=== PATIENT | female | born 1950 | race Caucasian/White ===

== ENCOUNTER 2020-02-03 14:09 | Emergency (ER) | payer MEDICARE, OTHER, SELFPAY ==
[2020-02-03] VITALS (21 sets, daily range): BP systolic 88–151; BP diastolic 66–94; PULSE 65–95; RESP 15–24; TEMP 36.7; O2SAT 92–99
--- NOTE | ~2020-02-03 | XR_ITS ---
EXAMINATION: XR chest 1V portable DATE: 02/03/2020 15:41 INDICATION: Shortness of breath. COVID-19 exposure. TECHNIQUE: A single frontal view of the chest was obtained. COMPARISON: Chest 2 views 03/20/2019 FINDINGS: Sensitivity is decreased by obesity. There are airspace opacities at right lung base. No pl eural effusion or pneumothorax. The heart size is normal. IMPRESSION: 1. Airspace opacities at right lung base, consistent with atelectasis versus pneumonia. Reviewed, dictated and finalized at location A. IMPRESSION: 1. Airspace opacities at right lung base, consistent with atelectasis versus pn eumonia.
--- NOTE | 2020-02-03 14:20 | ECG_ITS ---
Measurements Intervals [place] Rate: 74 P: -32 MS: 122 QRS: -44 QRSD: 104 T: 19 QT: 391 QTc: 435 Interpretive Statements SINUS OR ECTOPIC ATRIAL RHYTHM POOR R WAVE PROGRESSION, ANTERIOR LEADS HIGH LATERAL INFARCT, AGE INDETERMINATE ABNORMAL ECG Electronically Signed On 02-03-2020 15:20:11 CDT by Pablo Gold D.O.
[2020-02-03 14:53] LABS: Basophils Absolute Auto 0.1 K/mm3 (0.0-0.1); Basophils Percent Auto 0.7 % (0.2-1.2); Eosinophils Absolute Auto 0.6 K/mm3 (0-0.3); Eosinophils Percent Auto 4.9 % (0-4.4); Hematocrit 42.7 % (37.0-47.0); Immature Granulocyte Absolute 0.09 K/mm3 (0.00-0.031); Immature Granulocyte Percent A 0.7 % (0-0.5); Lymphocytes Percent Auto 26.6 % (18.3-44.2); Mean Corpuscular HGB Conc 32.8 g/dl (32-36); Mean Corpuscular Volume 97.7 fl (80-100); Mean Platelet Volume 10.3 fl (7.4-10.4); Monocytes Absolute Auto 0.7 K/mm3 (0.1-0.6); Monocytes Percent Auto 5.6 % (2.6-8.5); Neutrophils Absolute Auto 7.9 K/mm3 (1.3-6.7); Neutrophils Percent Auto 61.5 % (45.5-73.1); Platelet Count Result 282 k/mm3 (150-375); Red Blood Count 4.37 M/mm3 (4.2-5.4); Red Cell Distribution Width 13.9 % (11.5-14.5); White Blood Count 12.8 K/mm3 (4.5-10.0)
[2020-02-03 15:07] LABS: Anion Gap 7 mmol/L (8-16); Blood Urea Nitrogen 18 mg/dL (7-17); Calcium 9.1 mg/dL (8.4-10.2); Carbon Dioxide 25 mmol/L (22-30); Chloride 105 mmol/L (98-107); Estimated Glomerular Filt Rate > 60; Glucose 115 mg/dL (65-105); Potassium 3.2 mmol/L (3.4-5.0); Sodium 137 mmol/L (137-145)
--- NOTE | 2020-02-03 15:32 | ED.SOB ---
HPI - SOB/Dyspnea General Chief Complaint: Shortness of Breath/Dyspnea Stated Complaint: sob, covid exposure Time Seen by Provider: 02/03/20 15:15 Source: patient Mode of arrival: ambulatory Limitations: no limitations History of Present Illness HPI Narrative: This is a 69-year-old female that presents to the emergency department for cold symptoms x1 week. Reports cough, congestion, and shortness of breath. Reports history of asthma and increased wheezing. Reports she has finished a Z-Frankie and steroid taper with little relief. Reports she found out today that she had a COVID exposure prior to symptoms starting. Reports chest pain with coughing. Denies fever. Related Data Home Medications Medication Instructions Recorded Confirmed albuterol sulfate 02/03/20 albuterol sulfate INHALATION 02/03/20 alprazolam 02/03/20 amlodipine [Norvasc] 02/03/20 budesonide-formoterol [Symbicort] INHALATION 02/03/20 fluticasone propionate INTRANASAL 02/03/20 levothyroxine 02/03/20 lovastatin mg 02/03/20 mirtazapine mg 02/03/20 montelukast mg 02/03/20 umeclidinium [Incruse Ellipta] INHALATION 02/03/20 Allergies Allergy/AdvReac Type Severity Reaction Status Date / Time No Known Allergies Allergy Unknown Verified 02/03/20 15:11 Review of Systems Review of Systems: Narrative: CONSTITUTIONAL: Denies fever ENT: Reports rhinorrhea, congestion. Denies sore throat CARDIOVASCULAR: Reports chest pain. Denies edema. RESPIRATORY: Reports cough and dyspnea. All systems reviewed & are unremarkable except as noted in HPI and below [facility] Past Medical History Medical History (Updated 02/03/20 @ 19:56 by Michela Brown PA-C) History of asthma History of hypertension History of hypothyroidism Surgical History Surgical History (Updated 02/03/20 @ 15:35 by Michela Brown PA-C) History of cholecystectomy Social History Social History (Updated 02/03/20 @ 15:36 by Michela Brown PA-C) Smoking status: Never smoker Gender identity (if verbalized by the patient): Female Exam Narrative: Exam Narrative: GENERAL: Well-appearing, obese, and in no acute distress. HEAD: Normocephalic, atraumatic. EYES: EOMI. ENT: Nares clear, no rhinorrhea or epistaxis. Mucous membranes moist. Oropharynx without tonsillar hypertrophy exudate or other lesions. Bilateral TMs pearly amaya non-bulging NECK: Supple. No adenopathy or masses. CHEST: Clear to auscultation. No respiratory distress. No wheezes rales or rhonchi HEART: Regular rate and rhythm. No murmur heard. Normal peripheral pulses. EXTREMITIES: Normal range of motion. No edema. SKIN: Warm, dry, no rash. NEURO: No focal deficits. Alert and oriented x3. PSYCH: Normal mood and affect Course Vital Signs Vital signs: Vital Signs Temperature 98.1 F 02/03/20 14:16 Pulse Rate 95 02/03/20 14:16 Respiratory Rate 18 02/03/20 14:16 Blood Pressure 115/69 02/03/20 14:16 Pulse Oximetry 97 02/03/20 14:16 Temperature 98.1 F 02/03/20 14:16 Pulse Rate 66 02/03/20 19:27 Respiratory Rate 19 02/03/20 19:27 Blood Pressure 138/71 02/03/20 19:27 Pulse Oximetry 92 02/03/20 19:27 MDM - SOB/Dyspnea MDM Narrative Medical decision making narrative: Patient presents to the emergency department for cold symptoms x1 week. Has finished a z pac and steroid with little relief. Patient is afebrile and nontoxic-appearing. Oxygen saturation has remained normal on room air. CBC with mild leukocytosis to 12.8. Metabolic panel with mild hypokalemia, patient given a dose of potassium in the ED. Lactic acid, LDH are normal. CRP is not elevated. BNP is normal. EKG with nonspecific ST changes, baseline troponin is negative. Chest x-ray with atelectasis versus pneumonia. Patient able to give ambulate and maintain her oxygen saturation. SARS-CoV-2 was sent. Was instructed to remain self isolated and monitor oxygen saturation. Patient is stable and felt appropriate for t
[2020-02-03] MEDS: POTASSIUM CHLORIDE 20 MEQ TABLET PO (15:39)
[2020-02-03 15:50] LABS: Partial Thromboplastin Time 31.8 SECONDS (22.3-36.8); Prothrombin Time 12.7 Seconds (11.1-14.7)
[2020-02-03 16:01] LABS: D Dimer 0.27 ug/mL (<0.48)
[2020-02-03 18:03] LABS: Prothrombin Time 13.1 Seconds (11.1-14.7)
[2020-02-03 18:04] LABS: Partial Thromboplastin Time 31.7 SECONDS (22.3-36.8)
[2020-02-03 18:05] LABS: Lactic Acid Reflex 0.9 mmol/L (0.7-2.1)
[2020-02-03 18:14] LABS: NT Pro B Type Natriuretic Pept 75 PG/ML (5-100)
[2020-02-03 18:17] LABS: Troponin I < 0.012 ng/mL (0.000-0.034)
[2020-02-03 18:31] LABS: Alanine Aminotransferase 23 U/L (4-35); Albumin Level 4.1 g/dL (3.5-5.1); Alkaline Phosphatase 81 U/L (38-126); Aspartate Amino Transferase 19 U/L (14-36); CRP < 0.5 mg/dL (<1.0); Lactate Dehydrogenase 340 U/L (313-618)
[2020-02-03 18:48] LABS: Bilirubin,Total 0.8 mg/dL (0.2-1.3)
--- NOTE | 2020-02-03 19:28 | PC.NURSE ---
Assumed care of pt at this time. Report from TOMY Ennis
[2020-02-04 01:52] LABS: SARS-CoV-2 RNA PCR Negative
== END 2020-02-03 20:20 | disposition home or self-care (01) ==
PROVIDERS: Emergency Medicine; Physician Assistant; Emergency Provider Emergency Medicine
DX: J18.9 Pneumonia, unspecified organism (principal); E87.6 Hypokalemia; Z20.828 Contact with and (suspected) exposure to other viral communicable diseases; I10 Essential (primary) hypertension; E78.5 Hyperlipidemia, unspecified; J45.909 Unspecified asthma, uncomplicated; R94.31 Abnormal electrocardiogram [ECG] [EKG]
CPT/HCPCS: 36415; 71045; 80048; 80076; 83605; 83615; 83880; 84484; 85025; 85380; 85610; 85730; 86140; 87635; 93005; 99284; A9270; C9803; U0003

== ENCOUNTER → 2021-12-30 09:20 | Outpatient (CLI) | payer MEDICARE, SELFPAY ==
--- NOTE | ~2021-12-30 | US_ITS ---
EXAMINATION: US abdomen complete DATE: 12/30/2021 09:51 INDICATION: Abdominal pain. Status post cholecystectomy TECHNIQUE: Multiple grayscale and Doppler ultrasound images of the abdomen were obtained. COMPARISON: Ultrasound kidney 10/05/2018. FINDINGS: Exam limited by body habitus. Visualized portions of the pancreas are normal. The liver is normal wit h normal echogenicity and echotexture. No surface nodularity. Normal hepatopetal flow in the main por shannan vein. Gallbladder absent. The normal common bile duct measures 9 mm. The visualized portions of t he aorta and inferior vena cava are normal. Distal aorta not well seen. The right kidney measures 11.4 x 5.0 x 5.6. The left kidney measures 10.7 x 4.8 x 4.5. The kidneys de monstrate normal parenchymal echogenicity. There is no hydronephrosis. Lobular renal contour on the l eft may reflect renal scarring. The spleen is normal in appearance and measures 8 cm. IMPRESSION: 1. Possible left renal scarring. 2. Otherwise normal abdominal ultrasound findings. Reviewed, dictated and finalized at location K.
== END ==
PROVIDERS: PCP Nurse Practitioner Family; Visit Provider Nurse Practitioner Family
DX: R10.9 Unspecified abdominal pain (principal)
CPT/HCPCS: 76700

== ENCOUNTER 2022-09-05 14:34 | Outpatient (CLI) | payer MEDICARE, SELFPAY ==
--- NOTE | ~2022-09-05 | XR_ITS ---
XR abdomen obstructive series DATE: 09/05/2022 15:26 INDICATION: Nausea, vomiting, diarrhea, weakness TECHNIQUE: Supine and upright AP views COMPARISON: None FINDINGS: There is some gas containing nondilated small bowel segments overlying the left and right m id abdomen. No large or small bowel dilatation is noted to suggest obstruction. Consider enteritis or mild adynamic ileus. No intraperitoneal free air is detected. No portal venous gas or pneumobilia is detected. No visceromegaly or significant abnormal calcification is noted. IMPRESSION: Nonspecific abdomen Reviewed, dictated and finalized at Location A. Reviewed, dictated and finalized at location A. IMPRESSION: Nonspecific abdomen
[2022-09-05 15:08] LABS: Basophils Absolute Auto 0.1 K/mm3 (0.0-0.1); Basophils Percent Auto 0.7 % (0.2-1.2); Eosinophils Absolute Auto 0.7 K/mm3 (0-0.3); Eosinophils Percent Auto 5.2 % (0-4.4); Hematocrit 34.4 % (37.0-47.0); Hemoglobin 10.2 g/dL (12.0-15.0); Immature Granulocyte Absolute 0.05 K/mm3 (0.00-0.031); Immature Granulocyte Percent A 0.4 % (0-0.5); Lymphocytes Absolute Auto 2.38 K/mm3 (0.9-3.2); Lymphocytes Percent Auto 18.9 % (18.3-44.2); Mean Corpuscular HGB Conc 29.7 g/dl (32-36); Mean Corpuscular Hemoglobin 27.4 pg (26-34); Mean Corpuscular Volume 92.5 fl (80-100); Mean Platelet Volume 9.9 fl (7.4-10.4); Monocytes Absolute Auto 0.9 K/mm3 (0.1-0.6); Neutrophils Absolute Auto 8.5 K/mm3 (1.3-6.7); Neutrophils Percent Auto 67.8 % (45.5-73.1); Platelet Count Result 587 k/mm3 (150-375); Red Blood Count 3.72 M/mm3 (4.2-5.4); Red Cell Distribution Width 15.3 % (11.5-14.5); White Blood Count 12.6 K/mm3 (4.5-10.0)
[2022-09-05 15:22] LABS: Appearance Urine Turbid (Clear); Bacteria Urine 2+ /hpf; Bilirubin Urine 2+ (Negative); Blood Urine Negative (Negative); Color Urine Dark Yellow (Yellow); Glucose Urine UA Trace mg/dL (Negative); Hyaline Casts Urine Present /lpf; Ketones Urine 1+ mg/dL (Negative); Leukocyte Esterase Ur 2+ LEU/UL (NEGATIVE); Nitrate Urine Negative (Negative); Non Pathogenic Casts >20; Protein Urine 3+ mg/dL (Negative); Specific Grav Ur 1.028 (1.001-1.035); Squamous Epithelial Cell Urine Many /hpf (Few); WBC Urine 21-50 /hpf (0-3)
[2022-09-05 15:45] LABS: Add Urine Microscopic? YES
[2022-09-05 15:45] LABS: Alanine Aminotransferase 26 U/L (6-35); Albumin Level 4.6 g/dL (3.5-5.1); Alkaline Phosphatase 69 U/L (38-126); Amylase 47 U/L (30-110); Anion Gap 8 mmol/L (8-16); Aspartate Amino Transferase 27 U/L (14-36); Bilirubin,Total 0.7 mg/dL (0.2-1.3); Blood Urea Nitrogen 6 mg/dL (7-17); Calcium 9.8 mg/dL (8.4-10.2); Carbon Dioxide 28 mmol/L (22-30); Chloride 104 mmol/L (98-107); Estimated Glomerular Filt Rate > 60; Glucose 130 mg/dL (65-110); Lipase 50 U/L (23-300); Sodium 140 mmol/L (137-145)
[2022-09-05 16:04] LABS: Platelet Estimate Increased (Adequate)
[2022-09-05 16:05] LABS: Anisocytosis 2+ (NORMAL); Hypochromasia 1+ (NORMAL); Schistocytes None Seen (NORMAL)
== END 2022-09-05 14:35 | disposition home or self-care (01) ==
LOC: ANHLAB 14:42
PROVIDERS: PCP Nurse Practitioner Family; Visit Provider Nurse Practitioner Family
DX: R11.2 Nausea with vomiting, unspecified (principal); R19.7 Diarrhea, unspecified
CPT/HCPCS: 36415; 74019; 80053; 81001; 82150; 82248; 83690; 85025

== ENCOUNTER 2023-05-02 20:10 | Observation (INO) | payer MEDICARE, SELFPAY ==
[2023-05-02] VITALS (19 sets, daily range): BP systolic 103–145; BP diastolic 54–110; PULSE 103–117; RESP 14–32; TEMP 36.4; O2SAT 67–100
--- NOTE | ~2023-05-02 | CT_ITS ---
EXAMINATION: CT abdomen pelvis w con DATE: 05/03/2023 00:35 INDICATION: Black dark emesis and stools TECHNIQUE: Computed tomography (CT) of the abdomen and pelvis was performed with 100 mL Omnipaque-350 intravenous contrast. Automated exposure control and iterative reconstruction technique were employe d. The dose-length product was 1409.32 mGy-cm. COMPARISON: None FINDINGS: Mild bibasilar atelectasis. Arch size is normal. No pericardial or pleural effusion. Gallbladder is n ot visualized and likely surgically absent. Liver, spleen, pancreas, bilateral adrenal glands and kid neys are normal. Moderate diverticulosis with descending colon predominance and without adjacent from trace stranding to suggest diverticulitis. There is scattered liquid stool throughout the colon cons istent with diarrhea. Small bowel and appendix are normal. Bladder is normal. The uterus is not ident ified and has likely been surgically resected. No free intraperitoneal gas or fluid. No pathologicall y enlarged abdominal or pelvic lymphadenopathy. Small intramuscular lipoma in the proximal right rect us femoris muscle. Moderate lumbar and lower thoracic spondylosis. IMPRESSION: 1. Diverticulosis without diverticulitis and nonspecific diarrhea. No other acute intra-abdominal/pel karen process. Reviewed, dictated and finalized at location A. ISHER PLASTICOATER IMPRESSION: 1. Diverticulosis without diverticulitis and nonspecific diarrhea. No other acu te intra-abdominal/pelvic process.
--- NOTE | ~2023-05-02 | XR_ITS ---
XR chest 2V 05/03/2023 13:49 Indication: Leukocytosis. Emesis. Procedure: AP and lateral views of the chest Comparison: 02/02/2022 Findings: Heart size normal. Right basilar atelectasis/scarring. Nodular opacity along the left lower pleural surface near the costophrenic recess. No focal pneumonia, edema or pneumothorax. No effusion . Impression: 1: Nodular opacity left lower thorax. Follow-up CT chest recommended. Reviewed, dictated and finalized at location A. ING SIGNAL OFFICER Impression: 1: Nodular opacity left lower thorax. Follow-up CT chest recommended.
--- NOTE | 2023-05-02 20:26 | ECG_ITS ---
Measurements Intervals [place] Rate: 117 P: 104 [place]: 192 QRS: -50 QRSD: 96 T: 67 QT: 327 QTc: 457 Interpretive Statements SINUS TACHYCARDIA LEFT ANTERIOR FASCICULAR BLOCK [QRS AXIS <= -45, QR IN I, RS IN II] MODERATE ST DEPRESSION [0.05+ mV ST DEPRESSION] ABNORMAL ECG COMPARED TO ECG 02/03/2020 14:32:03 SINUS TACHYCARDIA NOW PRESENT LEFT ANTERIOR FASCICULAR BLOCK NOW PRESENT ST (T WAVE) DEVIATION NOW PRESENT Electronically Signed On 05-03-2023 11:52:22 MEDIA SPECIALIST by Gerhard Shepherd M.D.
[2023-05-02] MEDS: ONDANSETRON INJ 4 MG/2 ML VIAL IV PUSH (20:45)
[2023-05-02] MEDS: SODIUM CHLORIDE 0.9% IV 1,000 ML 999 ML IV CONT (20:45)
--- NOTE | 2023-05-02 21:12 | PC.NURSE ---
IV established. Unable to get blood at this time. Dr Almonte at bedside for US.
[2023-05-02 21:28] LABS: Influenza A QL RT-PCR Negative (Negative); Influenza B QL RT-PCR Negative (Negative); SARS-CoV-2 RNA PCR Negative (Negative)
--- NOTE | 2023-05-02 21:59 | PC.NURSE ---
This RN called phlebotomy to get lab draw for pt per EDP Dr. Almonte after several unsuccessful attempts.
--- NOTE | 2023-05-02 22:51 | ED.NAVMDI ---
HPI - Nausea/Vomiting/Diarrhea General Chief complaint: Nausea/Vomiting/Diarrhea Stated complaint: N/V, generalzied weakness Time Seen by Provider: 05/02/23 20:20 Source: patient and family (Grandson) Mode of arrival: ambulatory (Grandson transported patient) History of Present Illness HPI Narrative: This is a 72-year-old female who presents with report of several episodes of emesis that appeared like coffee granules . She states this started last night and in addition she had a bowel movement that was thin, loose, and black. She has been having generalized weakness. She does not know if she has been feverish but she does state that she was diaphoretic. She states this occurred a few years ago. She does not know if she has ever had an EGD but believes she had a colonoscopy; does not recall the year and the GI specialist who performed it is unknown. She did not follow-up with them. She is not on any anticoagulation. She is supposed to be taking 81 mg aspirin but she reports she is not taking this. She notes that earlier yesterday she was having some abdominal pain but this has since resolved. Related Data Home Medications Medication Instructions Recorded Confirmed albuterol sulfate 90 mcg/actuation See Rx Instructions .Route 02/03/20 05/03/23 aerosol inhaler .COMPLEX PRN Shortness Of Breath Or Wheezing alprazolam 0.5 mg tablet 0.5 mg PO BID PRN Anxiety 02/03/20 05/03/23 budesonide-formoterol HFA 160 2 puff inhalation BID 02/03/20 05/03/23 mcg-4.5 mcg/actuation aerosol inhaler (Symbicort) fluticasone propionate 50 1 spray intranasal DAILY PRN 02/03/20 05/03/23 mcg/actuation nasal allergies spray,suspension levothyroxine 25 mcg tablet 25 mcg PO DAILY 02/03/20 05/03/23 montelukast 10 mg tablet 10 mg PO DAILY 02/03/20 05/03/23 acetaminophen 650 mg tablet 650 mg PO Q6H PRN Mild Pain (Scale 05/03/23 05/03/23 Score 1-4) aspirin 81 mg chewable tablet 81 mg PO DAILY 05/03/23 05/03/23 atorvastatin 10 mg tablet 10 mg PO HS 05/03/23 05/03/23 azelastine 0.05 % eye drops See Rx Instructions .Route 05/03/23 05/03/23 .COMPLEX PRN allergies bupropion HCl 200 mg tablet,12 hr 200 mg PO DAILY 05/03/23 05/03/23 sustained-release cholecalciferol (vitamin D3) 25 25 mcg PO DAILY 05/03/23 05/03/23 mcg (1,000 unit) capsule (Vitamin D3) duloxetine 60 mg capsule,delayed 120 mg PO DAILY 05/03/23 05/03/23 release famotidine 20 mg tablet 20 mg PO BID 05/03/23 05/03/23 lisinopril 40 mg tablet 40 mg PO DAILY 05/03/23 05/03/23 [id number] 18 mg-mfolate 1 tablet PO DAILY 05/03/23 05/03/23 800 mcg DFE-vit K 150 mcg-herb tablet (Alive Women's Ultra Potency) vitamin B complex 1 tablet PO DAILY 05/03/23 05/03/23 Allergies Allergy/AdvReac Type Severity Reaction Status Date / Time No Known Allergies Allergy Unknown Verified 05/03/23 13:30 [facility] Past Medical History Medical History (Updated 05/04/23 @ 10:00 by Zehra Almonte MD) History of asthma History of hypertension History of hypothyroidism Morbid obesity due to excess calories Surgical History Surgical History History of cholecystectomy History of colonoscopy Family History Family History Daughter , due to MVA; also has Kidney failure Father Malignant neoplasm of prostate Kidney failure Lung cancer Mother Breast cancer Lung cancer Sibling Dementia Sibling Cancer Social History Social History Smoking packs per day: 0.5 Smoking cigarettes per day: 10.0 Years smoked: 12 Smoking pack-years: 6.00 Smoking status: Former smoker Tobacco type: cigarettes Alcohol intake: current Drinks per week: 14 Substance use: never Lack of Transportation: No Lack of Food: Sometimes True Current Housing: I Have Housing Concerned About Future Housing: YES
[2023-05-02 23:13] LABS: Basophils Absolute Auto 0.1 K/mm3 (0.0-0.1); Basophils Percent Auto 0.4 % (0.2-1.2); Eosinophils Absolute Auto 0.1 K/mm3 (0-0.3); Eosinophils Percent Auto 0.2 % (0-4.4); Hematocrit 29.5 % (37.0-47.0); Hemoglobin 8.8 g/dL (12.0-15.0); Immature Granulocyte Absolute 0.23 K/mm3 (0.00-0.031); Immature Granulocyte Percent A 0.9 % (0-0.5); Lymphocytes Percent Auto 11.7 % (18.3-44.2); Mean Corpuscular HGB Conc 29.8 g/dl (32-36); Mean Corpuscular Hemoglobin 29.5 pg (26-34); Mean Platelet Volume 11.1 fl (7.4-10.4); Monocytes Absolute Auto 1.5 K/mm3 (0.1-0.6); Neutrophils Absolute Auto 20.7 K/mm3 (1.3-6.7); Neutrophils Percent Auto 80.8 % (45.5-73.1); Platelet Count Result 294 k/mm3 (150-375); Red Blood Count 2.98 M/mm3 (4.2-5.4); Red Cell Distribution Width 15.7 % (11.5-14.5); White Blood Count 25.6 K/mm3 (4.5-10.0)
[2023-05-02 23:27] LABS: Prothrombin Time 14.2 Seconds (11.1-14.7)
[2023-05-02] MEDS: ONDANSETRON INJ 4 MG/2 ML VIAL (23:27)
--- NOTE | 2023-05-02 23:27 | PC.NURSE ---
This RN spoke with EDP Dr. Almonte about an order for an antinausea medications. EDP Dr. Almonte verbal order zofran. This Rn used closed loop communication to confirm medication/ dose/ and route.
[2023-05-02 23:28] LABS: Partial Thromboplastin Time 31.5 SECONDS (22.3-36.8)
[2023-05-02 23:33] LABS: Alanine Aminotransferase 18 U/L (6-35); Albumin Level 3.4 g/dL (3.5-5.1); Alkaline Phosphatase 73 U/L (38-126); Anion Gap 8 mmol/L (8-16); Aspartate Amino Transferase 22 U/L (14-36); Bilirubin,Total 0.5 mg/dL (0.2-1.3); Blood Urea Nitrogen 42 mg/dL (7-17); Calcium 8.6 mg/dL (8.4-10.2); Carbon Dioxide 25 mmol/L (22-30); Chloride 103 mmol/L (98-107); Estimated Glomerular Filt Rate > 60; Glucose 108 mg/dL (65-110); Lactic Acid Reflex 1.5 mmol/L (0.7-2.0); Lipase 63 U/L (23-300); Magnesium 1.9 mg/dL (1.6-2.3); Potassium 3.6 mmol/L (3.4-5.0); Sodium 136 mmol/L (137-145)
[2023-05-02 23:43] LABS: Platelet Estimate Adequate (Adequate); Troponin I 0.018 ng/mL (0.000-0.034)
[2023-05-02 23:45] LABS: Anisocytosis 1+ (NORMAL); Hypochromasia 1+ (NORMAL); Schistocytes None Seen (NORMAL)
[2023-05-03] VITALS (26 sets, daily range): BP systolic 92–144; BP diastolic 31–83; PULSE 78–118; RESP 14–22; TEMP 36.2–37; O2SAT 93–100; BMI 47.5
[2023-05-03] MEDS: SODIUM CHLORIDE 0.9% IV 1,000 ML 999 ML IV CONT (03:45)
[2023-05-03] MEDS: PANTOPRAZOLE SODIUM IV 40 MG VIAL 80 MG IV PUSH (03:47)
--- NOTE | 2023-05-03 04:20 | ADMGEN ---
This patient, Sandra Llamas, was admitted to Medical Room 257-. Patient/family oriented to hospital policies and general routines including ID bracelet, bed and alarms, visiting hours, pain management, procedures, bathroom and other care routines, personal items, smoking policy, room service/diet, and visiting hours. Information on how to activate the Rapid Response Team has been discussed. Patient/Family are encouraged to report perceived risks to care and to ask questions if they do not understand what they are told or what they should do.
[2023-05-03 04:50] LABS: Appearance Urine Clear (Clear); Bilirubin Urine Negative (Negative); Blood Urine Negative (Negative); Color Urine Yellow (Yellow); Glucose Urine UA Negative (Negative); Ketones Urine 1+ mg/dL (Negative); Leukocyte Esterase Ur Trace LEU/UL (Negative); Nitrate Urine Negative (Negative); Protein Urine Negative (Negative); Urobilinogen Urine 0.2 mg/dL (<2.0); pH Urine 5.5 (5.0-9.0)
[2023-05-03 04:54] LABS: Add Urine Microscopic? YES; WBC Urine 0-5 /hpf
[2023-05-03] MEDS: SODIUM CHLORIDE 0.9% IV 1,000 ML 125 ML IV CONT (05:30)
--- NOTE | 2023-05-03 09:03 | PM.IMHP ---
H&P: HPI History of Present Illness Date/Time: 05/03/23 09:03 Chief Complaint: Patient brought to the ER for evaluation with several episodes of coffee-ground vomiting Narrative: She is a pleasant 72 years old morbidly obese female who is having multiple episodes of coffee-ground vomiting that started last night. She also had a bowel movement which was thin, loose and black. She is also feeling weak and tired. She was brought to the ER for evaluation, workup was done which showed guaiac positive stools consistent with GI bleeding. One of her home meds is aspirin but she reports she is not taking that on a regular basis. She is also complaining of some abdominal pain yesterday which has been resolved. She is being admitted for medical management, close monitoring and GI evaluation in a.m. Review of Systems Review of Systems: she denies any chest pain, palpitation, fever rigor chills, loss of consciousness or any falls All systems reviewed & are unremarkable except as noted in HPI and below PMFSH Past Medical History Medical History (Updated 05/03/23 @ 09:13 by Ike Argueta MD) History of asthma History of hypertension History of hypothyroidism Morbid obesity due to excess calories Surgical History Surgical History History of cholecystectomy History of colonoscopy Family History Family History Daughter , due to MVA; also has No problems noted. Father Malignant neoplasm of prostate Kidney failure Lung cancer Mother Breast cancer Lung cancer Sibling Dementia Sibling Cancer Social History Social History Smoking packs per day: 0.5 Smoking cigarettes per day: 10.0 Years smoked: 12 Smoking pack-years: 6.00 Smoking status: Former smoker Tobacco type: cigarettes Alcohol intake: current Drinks per week: 14 Substance use: never Lack of Transportation: No Lack of Food: Sometimes True Current Housing: I Have Housing Concerned About Future Housing: YES Difficulty Paying Gas/Electric Bills: No Difficulty Paying for Meds: No Currently Unemployed: No Education: High School Diploma/GED Difficulty w/ Childcare or Family Care: No Gender identity (if verbalized by the patient): Female Spiritual care concerns: No Meds Home Medications and Allergies Home Medications Medication Instructions Recorded Confirmed Type albuterol sulfate 90 mcg/actuation See Rx Instructions .Route 02/03/20 05/03/23 History aerosol inhaler .COMPLEX PRN Shortness Of Breath Or Wheezing alprazolam 0.5 mg tablet 0.5 mg PO BID PRN Anxiety 02/03/20 05/03/23 History budesonide-formoterol HFA 160 2 puff inhalation BID 02/03/20 05/03/23 History mcg-4.5 mcg/actuation aerosol inhaler (Symbicort) fluticasone propionate 50 1 spray intranasal DAILY PRN 02/03/20 05/03/23 History mcg/actuation nasal allergies spray,suspension levothyroxine 25 mcg tablet 25 mcg PO DAILY 02/03/20 05/03/23 History montelukast 10 mg tablet 10 mg PO DAILY 02/03/20 05/03/23 History acetaminophen 650 mg tablet 650 mg PO Q6H PRN Mild Pain (Scale 05/03/23 05/03/23 History Score 1-4) aspirin 81 mg chewable tablet 81 mg PO DAILY 05/03/23 05/03/23 History atorvastatin 10 mg tablet 10 mg PO HS 05/03/23 05/03/23 History azelastine 0.05 % eye drops See Rx Instructions .Route 05/03/23 05/03/23 History .COMPLEX PRN allergies bupropion HCl 200 mg tablet,12 hr 200 mg PO DAILY 05/03/23 05/03/23 History sustained-release cholecalciferol (vitamin D3) 25 25 mcg PO DAILY 05/03/23 05/03/23 History mcg (1,000 unit) capsule (Vitamin D3) duloxetine 60 mg capsule,delayed 120 mg PO DAILY 05/03/23 05/03/23 History release famotidine 20 mg tablet 20 mg PO BID 05/03/23 05/03/23 History lisinopril 40 mg tablet 40 mg PO DAILY 05/03/2305/03
--- NOTE | 2023-05-03 09:04 | WPDGICN ---
Assessment and Plan Assessment and plan (1) Anemia: Code(s): D64.9 - Anemia, unspecified Status: Acute Assessment and Plan: Patient with anemia that appears to be consistent with acute blood loss. She gives history of black melenic stools and coffee-ground emesis. Plan for EGD today to assess more thoroughly. Start patient on pantoprazole. (2) Occult blood in stools: Code(s): R19.5 - Other fecal abnormalities Status: Acute Assessment and Plan: Stool noted to be occult positive in the ER suggesting GI blood loss. Black stool suggest upper GI source associated with her coffee-ground emesis history plan for EGD today. (3) Leukocytosis: Code(s): D72.829 - Elevated white blood cell count, unspecified Status: Acute Assessment and Plan: Elevated white count 32652 of uncertain etiology. This suggest inflammation. Demargination cannot be excluded. Underlying infection needs to be considered. Primary service will follow for this. GI Consult Note Consult date/time: 05/03/23 09:04 Reason for consult: Anemia, occult blood in stool HPI: Sandra Llamas is a 72 year old female I am asked to see at the request of the hospitalist service because of blood in stool. Patient states that she had coffee-ground like emesis on Thursday evening. Specks of coffee-ground like 5 blood were noted on emesis Thursday. She subsequently had black melenic stools. This persisted so that yesterday on Thursday she went to the emergency room. She had continued to vomit darkish blood. Stools continue to be black. In the emergency room Hemoccult positive stool was identified. Patient subsequently admitted the hospital for further evaluation. She does notice vague abdominal pain. She has no appetite. Family history noncontributory. She has a history of a colonoscopy in 2019 that revealed benign colon polyps. Review of Systems Review of Systems: Review of systems noncontributory. [facility] Past Medical History Medical History (Updated 05/03/23 @ 09:07 by Constantino Curtis MD) History of asthma History of hypertension History of hypothyroidism Surgical History Surgical History (Updated 05/03/23 @ 00:06 by Zehra Almonte MD) History of cholecystectomy History of colonoscopy Family History Family History (Updated 05/03/23 @ 04:47 by Jack Philippe RN) Daughter , due to MVA; also has No problems noted. Father Malignant neoplasm of prostate Kidney failure Lung cancer Mother Breast cancer Lung cancer Sibling Dementia Sibling Cancer Social History Social History (Updated 02/03/20 @ 15:36 by Michela Brown PA-C) Smoking packs per day: 0.5 Smoking cigarettes per day: 10.0 Years smoked: 12 Smoking pack-years: 6.00 Smoking status: Former smoker Tobacco type: cigarettes Alcohol intake: current Drinks per week: 14 Substance use: never Lack of Transportation: No Lack of Food: Sometimes True Current Housing: I Have Housing Concerned About Future Housing: YES Difficulty Paying Gas/Electric Bills: No Difficulty Paying for Meds: No Currently Unemployed: No Education: High School Diploma/GED Difficulty w/ Childcare or Family Care: No Gender identity (if verbalized by the patient): Female Spiritual care concerns: No Meds Home Medications and Allergies Home Medications Medication Instructions Recorded Confirmed Type albuterol sulfate 90 mcg/actuation See Rx Instructions .Route 02/03/20 05/03/23 History aerosol inhaler .COMPLEX PRN Shortness Of Breath Or Wheezing alprazolam 0.5 mg tablet 0.5 mg PO BID PRN Anxiety 02/03/20 05/03/23 History budesonide-formoterol HFA 160 2 puff inhalation BID 02/03/20 05/03/23 History mcg-4.5 mcg/actuation aerosol inhaler (Symbicort) fluticasone propionate 50 1 spray intranasal DAILY PRN 02/03/20 05/03/23 History mcg/actuation nasal allergie
--- NOTE | 2023-05-03 10:15 | PC.NURSE ---
patient taken down to GI lab for EGD, report given to Dulce
--- NOTE | 2023-05-03 10:52 | WPDANESEPPF ---
Anes - Initial Pre Proc Eval Procedure: Operation Date: 05/03/23 10:00 Proposed Procedures p Esophagogastroduodenoscopy - Constantino Curtis MD Date/Time: 05/03/23 10:52 Surgeon: Ike Argueta MD Pre Op Diagnosis: gi bleed, leukocytosis Patient Data Age: 72 Gender: F Height: 1.5 m Weight: 106.6 kg Last Vital Signs Temp 37.0 C 05/03/23 06:00 Pulse 95 05/03/23 06:00 Resp 20 05/03/23 06:00 BP 118/46 L 05/03/23 06:00 Pulse Ox 99 05/03/23 10:45 O2 Del Method Room Air 05/03/23 10:45 Allergies Allergy/AdvReac Type Severity Reaction Status Date / Time No Known Allergies Allergy Unknown Verified 05/03/23 04:47 Home Medications Medication Instructions Recorded Confirmed Type albuterol sulfate 90 mcg/actuation See Rx Instructions .Route 02/03/20 05/03/23 History aerosol inhaler .COMPLEX PRN Shortness Of Breath Or Wheezing alprazolam 0.5 mg tablet 0.5 mg PO BID PRN Anxiety 02/03/20 05/03/23 History budesonide-formoterol HFA 160 2 puff inhalation BID 02/03/20 05/03/23 History mcg-4.5 mcg/actuation aerosol inhaler (Symbicort) fluticasone propionate 50 1 spray intranasal DAILY PRN 02/03/20 05/03/23 History mcg/actuation nasal allergies spray,suspension levothyroxine 25 mcg tablet 25 mcg PO DAILY 02/03/20 05/03/23 History montelukast 10 mg tablet 10 mg PO DAILY 02/03/20 05/03/23 History acetaminophen 650 mg tablet 650 mg PO Q6H PRN Mild Pain (Scale 05/03/23 05/03/23 History Score 1-4) aspirin 81 mg chewable tablet 81 mg PO DAILY 05/03/23 05/03/23 History atorvastatin 10 mg tablet 10 mg PO HS 05/03/23 05/03/23 History azelastine 0.05 % eye drops See Rx Instructions .Route 05/03/23 05/03/23 History .COMPLEX PRN allergies bupropion HCl 200 mg tablet,12 hr 200 mg PO DAILY 05/03/23 05/03/23 History sustained-release cholecalciferol (vitamin D3) 25 25 mcg PO DAILY 05/03/23 05/03/23 History mcg (1,000 unit) capsule (Vitamin D3) duloxetine 60 mg capsule,delayed 120 mg PO DAILY 05/03/23 05/03/23 History release famotidine 20 mg tablet 20 mg PO BID 05/03/23 05/03/23 History lisinopril 40 mg tablet 40 mg PO DAILY 05/03/23 05/03/23 History gejepepa-squ-garw 18 mg-mfolate 1 tablet PO DAILY 05/03/23 05/03/23 History 800 mcg DFE-vit K 150 mcg-herb tablet (Alive Women's Ultra Potency) vitamin B complex 1 tablet PO DAILY 05/03/23 05/03/23 History Laboratory Tests 05/02/23 05/02/23 05/03/23 20:43 22:50 03:36 WBC 25.6 H K/mm3 (4.5-10.0) RBC 2.98 L M/mm3 (4.2-5.4) Hgb 8.8 L g/dL (12.0-15.0) Hct 29.5 L % (37.0-47.0) MCV 99.0 fl (80-100) MCH 29.5 pg (26-34) MCHC 29.8 L g/dl (32-36) RDW 15.7 H % (11.5-14.5) Plt Count 294 k/mm3 (150-375) MPV 11.1 H fl (7.4-10.4) Immature Gran % (Auto) 0.9 H % (0-0.5) Neut % (Auto) 80.8 H % (45.5-73.1) Lymph % (Auto) 11.7 L % (18.3-44.2) [place] % (Auto) 6.0 % (2.6-8.5) Eos % (Auto) 0.2 % (0-4.4) Baso % (Auto) 0.4 % (0.2-1.2) Lymph # (Auto) 3.00 K/mm3 (0.9-3.2) [place] # (Auto) 1.5 H K/mm3 (0.1-0.6) Eos # (Auto) 0.1 K/mm3 (0-0.3) Baso # (Auto) 0.1 K/mm3 (0.0-0.1) Abs Immat Gran (auto) 0.23 H K/mm3 (0.00-0.031) Absolute Neuts (auto) 20.7 H K/mm3 (1.3-6.7) Absolute Nucleated RBC 0.0 K/mm3 (0.0-0.012) Nucleated RBC % 0.0 % (0.0-0.2) Platelet Estimate Adequate (Adequate) Hypochromasia 1+ (NORMAL) Anisocytosis 1+ (NORMAL) Schistocytes None seen (NORMAL) PT 14.2 Seconds (11.1-14.7) INR 1.0 APTT 31.5 SECONDS (22.3-36.8) Sodium 136 L mmol/L (137-145) Potassium 3.6 mmol/L (3.4-5.0) Chloride 103 mmol/L (98-107) Carbon Dioxide 25 m
[2023-05-03] MEDS: LACTATED RINGERS 1,000 ML 150 ML IV CONT (11:07)
--- NOTE | 2023-05-03 14:10 | PC.NURSE ---
Patient returned from GI lab/ xray
[2023-05-03 14:12] LABS: Basophils Absolute Auto 0.1 K/mm3 (0.0-0.1); Basophils Percent Auto 0.5 % (0.2-1.2); Eosinophils Absolute Auto 0.3 K/mm3 (0-0.3); Eosinophils Percent Auto 1.7 % (0-4.4); Hemoglobin 7.2 g/dL (12.0-15.0); Immature Granulocyte Absolute 0.12 K/mm3 (0.00-0.031); Immature Granulocyte Percent A 0.7 % (0-0.5); Lymphocytes Absolute Auto 4.03 K/mm3 (0.9-3.2); Lymphocytes Percent Auto 23.3 % (18.3-44.2); Mean Corpuscular Hemoglobin 30.3 pg (26-34); Mean Corpuscular Volume 100.8 fl (80-100); Mean Platelet Volume 10.5 fl (7.4-10.4); Monocytes Percent Auto 5.7 % (2.6-8.5); Neutrophils Absolute Auto 11.8 K/mm3 (1.3-6.7); Neutrophils Percent Auto 68.1 % (45.5-73.1); Platelet Count Result 262 k/mm3 (150-375); Red Blood Count 2.38 M/mm3 (4.2-5.4); White Blood Count 17.3 K/mm3 (4.5-10.0)
[2023-05-03] MEDS: lisinopriL 20 MG TABLET 40 MG PO (14:31)
[2023-05-03] MEDS: buPROPion HCL SR (12HR) 100 MG TABCR 200 MG PO (14:31)
[2023-05-03] MEDS: THERAPEUTIC MULTIVITAMINS/MINERALS TAB (*BKC) 1 TABLET PO (14:31)
[2023-05-03] MEDS: MONTELUKAST SODIUM 10 MG TABLET PO (14:31)
[2023-05-03] MEDS: ACETAMINOPHEN 325 MG TABLET 650 MG PO (18:36)
[2023-05-03] MEDS: FAMOTIDINE 20 MG TABLET PO (18:36)
[2023-05-03] MEDS: FLUTICASONE/SALMETEROL 115-21 MCG INHALER 1 PUFF 2 PUFF INHALATION (20:19)
[2023-05-03] MEDS: PANTOPRAZOLE SODIUM IV 40 MG VIAL IV PUSH (20:43)
[2023-05-03] MEDS: ATORVASTATIN 10 MG TABLET PO (20:43)
[2023-05-03] MEDS: ONDANSETRON INJ 4 MG/2 ML VIAL IV PUSH (20:46)
[2023-05-03] MEDS: SODIUM CHLORIDE 0.9% IV 1,000 ML 75 ML IV CONT (22:44)
[2023-05-04] VITALS (20 sets, daily range): BP systolic 93–134; BP diastolic 43–70; PULSE 71–102; RESP 16–20; TEMP 36.3–37.6; O2SAT 93–98
[2023-05-04 01:37] LABS: Hematocrit 21.1 % (37.0-47.0)
[2023-05-04 01:40] LABS: Hemoglobin 6.3 g/dL (12.0-15.0)
[2023-05-04] MEDS: SODIUM CHLORIDE 0.9% IV 250 ML 30 ML IV CONT ×2 (03:28→06:53)
[2023-05-04] MEDS: LEVOTHYROXINE SODIUM 25 MCG TABLET PO (05:08)
--- NOTE | 2023-05-04 07:56 | WPDGIPROGNO ---
Progress Note: A&P Assessment and Plan (1) Pyloric channel ulcer: Code(s): K25.9 - Gastric ulcer, unspecified as acute or chronic, without hemorrhage or perforation Status: Acute Assessment and Plan: Patient identified as having pyloric channel ulcer by endoscopy yesterday. Decline in hemoglobin suggest that it may not be totally stable at present. Plan to transfuse to stable hemoglobin. Continue pantoprazole. Monitor hemoglobin. Advance diet slowly. (2) Anemia due to blood loss: Code(s): D50.0 - Iron deficiency anemia secondary to blood loss (chronic) Status: Acute Assessment and Plan: Patient with decline in hemoglobin overnight. May be equilibration. Cannot exclude additional bleeding from ulcer. Continue to monitor to ill hemoglobin stable. Transfuse to a more stable hemoglobin. Continue pantoprazole. Subjective Date/time seen: 05/04/23 07:56 Interval history: Patient alert this morning. With somewhat lightheaded over the weekend. Morning labs show decline in hemoglobin is 6.3. Patient has not had increased stools but stools that a past continued to be black. Review of Systems Review of Systems: Review of systems noncontributory. Exam Narrative: Physical exam reveals patient to be alert. Comfortable at rest. Vital signs stable. HEENT exam patient is anicteric. Lungs are clear. Heart without murmur. Abdomen is obese soft nontender. Objective Data Vital Signs Vital Signs: Vital Signs - 24 hr 05/03/23 10:45 05/03/23 10:15 05/03/23 13:01 Temperature 97.5 F L Pulse Rate 100 95 Respiratory Rate 18 20 Blood Pressure 127/79 128/69 Pulse Oximetry 99 96 100 Oxygen Delivery Room Air Room Air Room Air 05/03/23 13:11 05/03/23 13:21 05/03/23 14:00 Temperature 98.0 F Pulse Rate 91 92 90 Respiratory Rate 20 17 16 Blood Pressure 131/73 118/59 L 123/57 L Pulse Oximetry 97 96 94 Oxygen Delivery Room Air Room Air 05/03/23 08:30 05/03/23 08:00 05/03/23 16:00 Temperature 98.5 F Pulse Rate 91 84 Respiratory Rate 14 Blood Pressure 92/31 L Pulse Oximetry 100 Oxygen Delivery Room Air 05/03/23 17:30 05/03/23 20:20 05/03/23 20:00 Temperature 97.2 F L Pulse Rate 86 81 Respiratory Rate 20 Blood Pressure Pulse Oximetry 93 93 Oxygen Delivery Room Air 05/03/23 21:32 05/03/23 20:00 05/04/23 00:00 Temperature 98.1 F Pulse Rate 102 H Respiratory Rate 20 Blood Pressure 105/48 L 118/62 Pulse Oximetry 94 Oxygen Delivery Room Air 05/04/23 01:03 05/03/23 20:00 05/04/23 00:00 Temperature 98.1 F Pulse Rate 102 H 78 77 Respiratory Rate 20 Blood Pressure 118/62 Pulse Oximetry 94 Oxygen Delivery 05/04/23 03:28 05/04/23 03:44 05/04/23 04:00 Temperature 98.6 F 99.1 F Pulse Rate 80 78 72 Respiratory Rate 18 18 Blood Pressure 107/43 L 93/44 L Pulse Oximetry 95 95 Oxygen Delivery 05/04/23 04:00 05/04/23 04:44 05/04/23 05:44 Temperature 97.4 F L 97.4 F L 98.5 F Pulse Rate 71 71 79 Respiratory Rate 18 18 18 Blood Pressure 101/45 L 101/45 L 98/44 L Pulse Oximetry 95 95 97 Oxygen Delivery 05/04/23 06:32 05/04/23 06:50 05/04/23 07:06 Temperature 98.3 F 98.9 F 99.2 F Pulse Rate 78 71 77 Respiratory Rate 18 18 18 Blood Pressure 111/46 L 102/44 L 106/56 L Pulse Oximetry 94 93 95 Oxygen Delivery Intake/Output Intake/Output: Intake & Output 05/01/23 05/02/23 05/03/23 05/04/23 23:59 23:59 23:59 23:59 Intake Total 1000 3140 770 Output Total 0 325 Balance 1000 3140 445 Meds/Results Medications: Active Medications Generic Name Dose Route Start Last Admin Trade Name Freq PRN Reason Stop Dose Admin Acetaminophen 650 mg 05/03/23 09:17 05/03/23 18:36 Acetaminophen 325 Mg Tablet PO 650 mg Q4H PRN Administration Mild Pain (1-3) or Fever Al Hydrox/Mg Hydrox/Simethicone 30 ml 05/03/23 09:17 Mag Hydrox/Al Hydrox/Simeth 30 Ml Udc P
[2023-05-04] MEDS: buPROPion HCL SR (12HR) 100 MG TABCR 200 MG PO (09:52)
[2023-05-04] MEDS: lisinopriL 20 MG TABLET 40 MG PO (09:52)
[2023-05-04] MEDS: MONTELUKAST SODIUM 10 MG TABLET PO (09:52)
[2023-05-04] MEDS: THERAPEUTIC MULTIVITAMINS/MINERALS TAB (*BKC) 1 TABLET PO (09:53)
[2023-05-04] MEDS: PANTOPRAZOLE SODIUM IV 40 MG VIAL IV PUSH ×2 (09:53→20:15)
[2023-05-04] MEDS: VITAMIN B COMPLEX CAPSULE 1 CAP PO (09:53)
[2023-05-04] MEDS: DULoxetine HCL 60 MG CAPSULE.DR 120 MG PO (09:53)
[2023-05-04] MEDS: CHOLECALCIFEROL 1,000 UNITS TABLET 1000 UNITS PO (09:53)
[2023-05-04] MEDS: FAMOTIDINE 20 MG TABLET PO ×2 (09:55→17:13)
[2023-05-04] MEDS: FLUTICASONE/SALMETEROL 115-21 MCG INHALER 1 PUFF 2 PUFF INHALATION ×2 (10:22→21:03)
[2023-05-04 11:40] LABS: Basophils Absolute Auto 0.1 K/mm3 (0.0-0.1); Basophils Percent Auto 0.6 % (0.2-1.2); Eosinophils Absolute Auto 0.4 K/mm3 (0-0.3); Eosinophils Percent Auto 2.4 % (0-4.4); Hematocrit 27.9 % (37.0-47.0); Hemoglobin 8.5 g/dL (12.0-15.0); Immature Granulocyte Absolute 0.16 K/mm3 (0.00-0.031); Lymphocytes Absolute Auto 2.86 K/mm3 (0.9-3.2); Lymphocytes Percent Auto 17.5 % (18.3-44.2); Mean Corpuscular HGB Conc 30.5 g/dl (32-36); Mean Corpuscular Hemoglobin 29.9 pg (26-34); Mean Corpuscular Volume 98.2 fl (80-100); Monocytes Absolute Auto 1.3 K/mm3 (0.1-0.6); Monocytes Percent Auto 7.7 % (2.6-8.5); Neutrophils Absolute Auto 11.6 K/mm3 (1.3-6.7); Neutrophils Percent Auto 70.8 % (45.5-73.1); Nucleated Red Blood Cells Perc 0.1 % (0.0-0.2); Platelet Count Result 224 k/mm3 (150-375); Red Blood Count 2.84 M/mm3 (4.2-5.4); Red Cell Distribution Width 17.4 % (11.5-14.5); White Blood Count 16.4 K/mm3 (4.5-10.0)
[2023-05-04 11:52] LABS: Anion Gap 7 mmol/L (8-16); Blood Urea Nitrogen 14 mg/dL (7-17); Carbon Dioxide 24 mmol/L (22-30); Chloride 107 mmol/L (98-107); Estimated Glomerular Filt Rate > 60; Glucose 116 mg/dL (65-110); Magnesium 2.1 mg/dL (1.6-2.3); Phosphorus 2.5 mg/dL (2.5-4.5); Potassium 3.5 mmol/L (3.4-5.0); Sodium 138 mmol/L (137-145)
--- NOTE | 2023-05-04 17:51 | PM.IMPN ---
Progress Note: A&P Assessment and Plan (1) GI bleeding: Qualifiers: GI bleed type/associated pathology: unspecified gastrointestinal hemorrhage type Qualified Code(s): K92.2 - Gastrointestinal hemorrhage, unspecified Code(s): K92.2 - Gastrointestinal hemorrhage, unspecified Status: Acute (2) Morbid obesity due to excess calories: Code(s): E66.01 - Morbid (severe) obesity due to excess calories Status: Acute Plan Admit patient to medical unit under full inpatient status Keep patient nothing by mouth except meds Continue with IV Protonix Hemoglobin was 6.3 this morning and 2 units packed RBCs ordered by GI Ordered serum ferritin and iron profile tomorrow Patient has leukocytosis without any clear-cut evidence of UTI or pneumonia, which is likely reactive in nature Patient received 2 L of IV hydration in the ER Continue gentle IV hydration at 75 cc per hour Hold off on Aspirin/NSAIDs/anticoagulation Patient underwent colonoscopy yesterday which showed gastric ulcer ? Patient seen and examined at bedside ? Collaborated with patient's nurse at the bedside in detail and addressed all concerns ? Labs, electrolytes, radiology, investigations and test results reviewed ? Spoke with ED provider and discussed patient's presentation, ED treatment, and workup in thorough detail ? ED/Consult/Nursing/Ancilliary notes on the chart reviewed and appreciated ? Spoke with patient at the bedside and answered all the questions that she had Repeat labs in a.m. Electrolyte replacement as per protocol. Patient will be monitored very closely on the floor. Further recommendations as per the hospital course. Subjective Date/time seen: 05/04/23 17:51 Interval history: Patient seen and evaluated at bedside. Continues to have black stools. Hemoglobin was 6.3 in the morning and 2 units of packed RBCs ordered by GI. Review of Systems Review of Systems: she denies any chest pain, palpitation, fever rigor chills, loss of consciousness or any falls All systems reviewed & are unremarkable except as noted in HPI and below Exam Narrative: PHYSICAL EXAMINATION: Vital signs: Please see the chart General physical exam: operatively obese female, lying in bed, appears to be tired and fatigued Head/eyes: Atraumatic, EOMI, PERRLA ENT: Moist mucous membranes, nasal passages clear Neck: Supple, full range of motion, trachea midline CVS: S1 + S2, regular rate and rhythm, no murmurs Respiratory: Bilaterally fair air entry in both lung grossman, mild B/L crackles, symmetric chest expansion, no distress Abdomen: Soft, non-tender, bowel sounds +ve, no organomegaly Extremities: No clubbing, no cyanosis, no edema, no calf tenderness Musculoskeletal: Moves all, adequate range of motion, no muscle spasms Skin: Warm, dry, no jaundice, no cyanosis Neurological: Awake, alert, oriented x 3, cranial nerves II-XII intact, no focal neurological deficits Psychiatric: Normal mood, non suicidal Objective Data Vital Signs Vital Signs: Vital Signs - 24 hr 05/03/23 20:20 05/03/23 20:00 05/03/23 21:32 Temperature 36.2 C L Pulse Rate 81 Respiratory Rate 20 Blood Pressure 105/48 L Pulse Oximetry 93 93 Oxygen Delivery Room Air 05/03/23 20:00 05/04/23 00:00 05/04/23 01:03 Temperature 36.7 C 36.7 C Pulse Rate 102 H 102 H Respiratory Rate 20 20 Blood Pressure 118/62 118/62 Pulse Oximetry 94 94 Oxygen Delivery Room Air 05/03/23 20:00 05/04/23 00:00 05/04/23 03:28 Temperature 37.0 C Pulse Rate 78 77 80 Respiratory Rate 18 Blood Pressure 107/43 L Pulse Oximetry 95 Oxygen Delivery 05/04/23 03:44 05/04/23 04:00 05/04/23 04:00 Temperature 37.3 C 36.3 C L Pulse Rate 78 72 71 Respiratory Rate 18 18 Blood Pressure 93/44 L 101/45 L Pulse Oximetry 95 95 Oxygen Delivery 05/04/23 04:44 05/04/23 05:44 05/04/23 06:32 Temperature 36.3 C L 36.9 C 36.8 C Pulse Rate 71 79 78 Respiratory
[2023-05-04] MEDS: ATORVASTATIN 10 MG TABLET PO (20:15)
[2023-05-04] MEDS: SODIUM CHLORIDE 0.9% IV 1,000 ML 75 ML IV CONT (22:48)
[2023-05-05] VITALS (12 sets, daily range): BP systolic 109–149; BP diastolic 43–78; PULSE 72–105; RESP 16–20; TEMP 36.1–36.7; O2SAT 94–100
[2023-05-05] MEDS: LEVOTHYROXINE SODIUM 25 MCG TABLET PO (05:33)
[2023-05-05 06:03] LABS: Basophils Absolute Auto 0.1 K/mm3 (0.0-0.1); Basophils Percent Auto 0.5 % (0.2-1.2); Eosinophils Absolute Auto 0.6 K/mm3 (0-0.3); Eosinophils Percent Auto 4.3 % (0-4.4); Hematocrit 25.8 % (37.0-47.0); Hemoglobin 7.8 g/dL (12.0-15.0); Immature Granulocyte Absolute 0.09 K/mm3 (0.00-0.031); Immature Granulocyte Percent A 0.7 % (0-0.5); Lymphocytes Absolute Auto 3.22 K/mm3 (0.9-3.2); Lymphocytes Percent Auto 24.3 % (18.3-44.2); Mean Corpuscular HGB Conc 30.2 g/dl (32-36); Mean Corpuscular Hemoglobin 29.8 pg (26-34); Mean Corpuscular Volume 98.5 fl (80-100); Mean Platelet Volume 10.9 fl (7.4-10.4); Monocytes Absolute Auto 0.9 K/mm3 (0.1-0.6); Monocytes Percent Auto 6.9 % (2.6-8.5); Neutrophils Absolute Auto 8.4 K/mm3 (1.3-6.7); Neutrophils Percent Auto 63.3 % (45.5-73.1); Nucleated Red Blood Cells Perc 0.2 % (0.0-0.2); Platelet Count Result 223 k/mm3 (150-375); Red Blood Count 2.62 M/mm3 (4.2-5.4); Red Cell Distribution Width 18.2 % (11.5-14.5); White Blood Count 13.2 K/mm3 (4.5-10.0)
[2023-05-05 06:12] LABS: Anion Gap 8 mmol/L (8-16); Blood Urea Nitrogen 9 mg/dL (7-17); Calcium 8.8 mg/dL (8.4-10.2); Carbon Dioxide 24 mmol/L (22-30); Chloride 107 mmol/L (98-107); Estimated Glomerular Filt Rate > 60; Glucose 103 mg/dL (65-110); Potassium 3.3 mmol/L (3.4-5.0); Sodium 139 mmol/L (137-145)
[2023-05-05 07:03] LABS: Iron 20 ug/dL (37-170)
[2023-05-05 07:13] LABS: Percent Iron Saturation 6 % (20-50)
[2023-05-05] MEDS: FLUTICASONE/SALMETEROL 115-21 MCG INHALER 1 PUFF 2 PUFF INHALATION ×2 (08:25→20:05)
[2023-05-05] MEDS: buPROPion HCL SR (12HR) 100 MG TABCR 200 MG PO (09:03)
[2023-05-05] MEDS: VITAMIN B COMPLEX CAPSULE 1 CAP PO (09:03)
[2023-05-05] MEDS: MONTELUKAST SODIUM 10 MG TABLET PO (09:03)
[2023-05-05] MEDS: THERAPEUTIC MULTIVITAMINS/MINERALS TAB (*BKC) 1 TABLET PO (09:03)
[2023-05-05] MEDS: PANTOPRAZOLE SODIUM IV 40 MG VIAL IV PUSH (09:03)
[2023-05-05] MEDS: CHOLECALCIFEROL 1,000 UNITS TABLET 1000 UNITS PO (09:03)
[2023-05-05] MEDS: DULoxetine HCL 60 MG CAPSULE.DR 120 MG PO (09:03)
[2023-05-05] MEDS: FAMOTIDINE 20 MG TABLET PO ×2 (09:03→17:22)
[2023-05-05] MEDS: lisinopriL 20 MG TABLET 40 MG PO (09:03)
--- NOTE | 2023-05-05 13:09 | WPDGIPROGNO ---
Progress Note: A&P Assessment and Plan (1) Pyloric channel ulcer: Code(s): K25.9 - Gastric ulcer, unspecified as acute or chronic, without hemorrhage or perforation Status: Acute Assessment and Plan: Pyloric channel identified. Benign histology. H pylori negative. It appears this is on the basis of NSAID use. Plan to continue pantoprazole, allow diet as tolerated. Hemoglobin currently stable after transfusion. May discharge when we are certain hemoglobin is stable. Perhaps tomorrow. Patient should avoid NSAIDs. She is advised to use Tylenol at recommended doses only for her pain control. (2) Anemia due to blood loss: Code(s): D50.0 - Iron deficiency anemia secondary to blood loss (chronic) Status: Acute Subjective Date/time seen: 05/05/23 13:09 Interval history: Patient alert. Much more comfortable today. Tolerating diet without difficulty. No significant additional bleeding described. Review of Systems Review of Systems: Review of systems noncontributory. Exam Narrative: Physical exam reveals patient be alert. Vital signs are stable. HEENT exam reveals no icterus. Lungs are clear. Heart without murmur. Abdomen soft nontender modestly obese. Objective Data Vital Signs Vital Signs: Vital Signs - 24 hr 05/04/23 15:51 05/04/23 16:00 05/04/23 20:00 Temperature 98.4 F 97.9 F Pulse Rate 90 88 78 Respiratory Rate 16 18 Blood Pressure 108/45 L 118/48 L Pulse Oximetry 96 98 Oxygen Delivery 05/04/23 21:04 05/04/23 20:00 05/04/23 20:00 Temperature Pulse Rate 98 Respiratory Rate 18 Blood Pressure Pulse Oximetry Oxygen Delivery Room Air 05/05/23 00:00 05/05/23 00:00 05/05/23 03:54 Temperature 97.0 F L 97.9 F Pulse Rate 98 80 105 H Respiratory Rate 20 20 Blood Pressure 109/48 L 137/78 Pulse Oximetry 94 97 Oxygen Delivery 05/05/23 04:00 05/05/23 08:26 05/05/23 08:00 Temperature Pulse Rate 86 Respiratory Rate Blood Pressure Pulse Oximetry 94 Oxygen Delivery Room Air Room Air 05/05/23 09:50 05/05/23 08:00 Temperature 98.0 F Pulse Rate 72 78 Respiratory Rate 16 Blood Pressure 124/43 L Pulse Oximetry 97 Oxygen Delivery Intake/Output Intake/Output: Intake & Output 05/02/23 05/03/23 05/04/23 05/05/23 23:59 23:59 23:59 23:59 Intake Total 1000 3140 3550 630 Output Total 0 925 300 Balance 1000 3140 2625 330 Meds/Results Medications: Active Medications Generic Name Dose Route Start Last Admin Trade Name Freq PRN Reason Stop Dose Admin Acetaminophen 650 mg 05/03/23 09:17 05/03/23 18:36 Acetaminophen 325 Mg Tablet PO 650 mg Q4H PRN Administration Mild Pain (1-3) or Fever Al Hydrox/Mg Hydrox/Simethicone 30 ml 05/03/23 09:17 Mag Hydrox/Al Hydrox/Simeth 30 Ml Udc PO QID PRN Dyspepsia Albuterol 2 puff 05/03/23 09:21 Albuterol Sulfate (*Sp) Aerosol 1 Puff INHALATION Q4HRT PRN Shortness Of Breath Or Wheezing Alprazolam 0.5 mg 05/03/23 09:21 Alprazolam (*Crx) 0.5 Mg Tablet PO BID PRN Anxiety Atorvastatin Calcium 10 mg 05/03/23 21:00 05/04/23 20:15 Atorvastatin 10 Mg Tablet PO 10 mg HS SERGEY Administration Bupropion HCl 200 mg 05/03/23 10:00 05/05/23 09:03 Bupropion Hcl Sr (12hr) 100 Mg Tabcr PO 200 mg DAILY SERGEY Administration Duloxetine HCl 120 mg 05/04/23 09:00 05/05/23 09:03 Duloxetine Hcl 60 Mg Capsule.Dr PO 120 mg DAILY SERGEY Administration Famotidine 20 mg 05/03/23 17:00 05/05/23 09:03 Famotidine 20 Mg Tablet PO 20 mg BID SERGEY Administration Fluticasone Propionate 1 spray 05/03/23 09:21 Fluticasone Propionate 0.05% Na Spr 16 Gm Btl (*Bkc) NASAL DAILY PRN allergies Sodium Chloride 1,000 mls @ 75 mls/hr 05/03/23 03:05 05/04/23 22:48 Normal Saline Iv IV CONT 75 mls/hr .[id number] SERGEY Administration Levothyroxine Sodium 25 mcg 05/04/23 0
[2023-05-05] MEDS: SODIUM CHLORIDE 0.9% IV 1,000 ML 75 ML IV CONT (13:22)
[2023-05-05 13:48] LABS: Hematocrit 27.8 % (37.0-47.0); Hemoglobin 8.4 g/dL (12.0-15.0)
--- NOTE | 2023-05-05 18:11 | PC.NURSE ---
Pt lost IV access. Talked to hospitalist and asked if it would be okay to switch pt to PO protonix and discontinue you IV fluids. Hospitalist said that was okay.
--- NOTE | 2023-05-05 18:28 | PM.IMPN ---
Progress Note: A&P Assessment and Plan (1) GI bleeding: Qualifiers: GI bleed type/associated pathology: unspecified gastrointestinal hemorrhage type Qualified Code(s): K92.2 - Gastrointestinal hemorrhage, unspecified Code(s): K92.2 - Gastrointestinal hemorrhage, unspecified Status: Acute (2) Morbid obesity due to excess calories: Code(s): E66.01 - Morbid (severe) obesity due to excess calories Status: Acute Plan Admit patient to medical unit under full inpatient status Keep patient nothing by mouth except meds Switch IV to oral Protonix b.i.d. as patient has lost IV site and she is a hard stick Hemoglobin was 7.8 this morning, repeat hemoglobin was 8.4. Monitor H&H closely Ordered serum ferritin and iron profile tomorrow Patient has leukocytosis without any clear evidence of UTI or pneumonia, which is likely reactive in nature, and slowly downtrending DC IV fluids Hold off on Aspirin/NSAIDs/anticoagulation Patient underwent colonoscopy yesterday which showed gastric ulcer DC patient in a.m. if hemoglobin remained stable and patient is cleared by GI for discharge ? Patient seen and examined at bedside ? Collaborated with patient's nurse at the bedside in detail and addressed all concerns ? Labs, electrolytes, radiology, investigations and test results reviewed ? Spoke with ED provider and discussed patient's presentation, ED treatment, and workup in thorough detail ? ED/Consult/Nursing/Ancilliary notes on the chart reviewed and appreciated ? Spoke with patient at the bedside and answered all the questions that she had Repeat labs in a.m. Electrolyte replacement as per protocol. Patient will be monitored very closely on the floor. Further recommendations as per the hospital course. Subjective Date/time seen: 05/05/23 18:28 Interval history: Patient is feeling better. Wants to go home. Hemoglobin dropped from 8.5-7.8 overnight. Review of Systems Review of Systems: she denies any chest pain, palpitation, fever rigor chills, loss of consciousness or any falls All systems reviewed & are unremarkable except as noted in HPI and below Exam Narrative: PHYSICAL EXAMINATION: Vital signs: Please see the chart General physical exam: operatively obese female, lying in bed, appears to be tired and fatigued Head/eyes: Atraumatic, EOMI, PERRLA ENT: Moist mucous membranes, nasal passages clear Neck: Supple, full range of motion, trachea midline CVS: S1 + S2, regular rate and rhythm, no murmurs Respiratory: Bilaterally fair air entry in both lung grossman, mild B/L crackles, symmetric chest expansion, no distress Abdomen: Soft, non-tender, bowel sounds +ve, no organomegaly Extremities: No clubbing, no cyanosis, no edema, no calf tenderness Musculoskeletal: Moves all, adequate range of motion, no muscle spasms Skin: Warm, dry, no jaundice, no cyanosis Neurological: Awake, alert, oriented x 3, cranial nerves II-XII intact, no focal neurological deficits Psychiatric: Normal mood, non suicidal Objective Data Vital Signs Vital Signs: Vital Signs - 24 hr 05/04/23 20:00 05/04/23 21:04 05/04/23 20:00 Temperature 36.6 C Pulse Rate 78 Respiratory Rate 18 18 Blood Pressure 118/48 L Pulse Oximetry 98 Oxygen Delivery Room Air 05/04/23 20:00 05/05/23 00:00 05/05/23 00:00 Temperature 36.1 C L Pulse Rate 98 98 80 Respiratory Rate 20 Blood Pressure 109/48 L Pulse Oximetry 94 Oxygen Delivery 05/05/23 03:54 05/05/23 04:00 05/05/23 08:26 Temperature 36.6 C Pulse Rate 105 H 86 Respiratory Rate 20 Blood Pressure 137/78 Pulse Oximetry 97 94 Oxygen Delivery Room Air 05/05/23 08:00 05/05/23 09:50 05/05/23 08:00 Temperature 36.7 C Pulse Rate 72 78 Respiratory Rate 16 Blood Pressure 124/43 L Pulse Oximetry 97 Oxygen Delivery Room Air 05/05/23 12:00 05/05/23 16:00 Temperature Pulse Rate 84 79 Respiratory Rate Blood Pressure
[2023-05-05] MEDS: PANTOPRAZOLE 40 MG TABLET PO (20:57)
[2023-05-05] MEDS: ATORVASTATIN 10 MG TABLET PO (20:57)
[2023-05-05] MEDS: ALPRAZolam (*CRX) 0.5 MG TABLET PO (22:32)
[2023-05-06] VITALS (10 sets, daily range): BP systolic 124–169; BP diastolic 66–91; PULSE 72–96; RESP 14–20; TEMP 36.3–36.7; O2SAT 94–99
[2023-05-06 05:12] LABS: Basophils Absolute Auto 0.1 K/mm3 (0.0-0.1); Basophils Percent Auto 0.7 % (0.2-1.2); Eosinophils Absolute Auto 0.7 K/mm3 (0-0.3); Eosinophils Percent Auto 5.5 % (0-4.4); Hematocrit 28.3 % (37.0-47.0); Hemoglobin 8.5 g/dL (12.0-15.0); Immature Granulocyte Absolute 0.08 K/mm3 (0.00-0.031); Immature Granulocyte Percent A 0.6 % (0-0.5); Lymphocytes Percent Auto 24.8 % (18.3-44.2); Mean Corpuscular Hemoglobin 29.7 pg (26-34); Mean Platelet Volume 10.3 fl (7.4-10.4); Monocytes Absolute Auto 0.9 K/mm3 (0.1-0.6); Monocytes Percent Auto 6.8 % (2.6-8.5); Neutrophils Absolute Auto 7.9 K/mm3 (1.3-6.7); Neutrophils Percent Auto 61.6 % (45.5-73.1); Nucleated Red Blood Cells Perc 0.2 % (0.0-0.2); Platelet Count Result 268 k/mm3 (150-375); Red Blood Count 2.86 M/mm3 (4.2-5.4); Red Cell Distribution Width 18.4 % (11.5-14.5); White Blood Count 12.9 K/mm3 (4.5-10.0)
[2023-05-06] MEDS: LEVOTHYROXINE SODIUM 25 MCG TABLET PO (05:14)
[2023-05-06] MEDS: ALPRAZolam (*CRX) 0.5 MG TABLET PO ×2 (05:14→21:07)
[2023-05-06 05:22] LABS: Anion Gap 10 mmol/L (8-16); Blood Urea Nitrogen 8 mg/dL (7-17); Calcium 9.3 mg/dL (8.4-10.2); Carbon Dioxide 26 mmol/L (22-30); Chloride 105 mmol/L (98-107); Estimated Glomerular Filt Rate > 60; Glucose 101 mg/dL (65-110); Potassium 3.2 mmol/L (3.4-5.0); Sodium 141 mmol/L (137-145)
[2023-05-06] MEDS: MONTELUKAST SODIUM 10 MG TABLET PO (08:09)
[2023-05-06] MEDS: VITAMIN B COMPLEX CAPSULE 1 CAP PO (08:09)
[2023-05-06] MEDS: FAMOTIDINE 20 MG TABLET PO ×2 (08:09→17:13)
[2023-05-06] MEDS: PANTOPRAZOLE 40 MG TABLET PO ×2 (08:09→21:07)
[2023-05-06] MEDS: THERAPEUTIC MULTIVITAMINS/MINERALS TAB (*BKC) 1 TABLET PO (08:09)
[2023-05-06] MEDS: DULoxetine HCL 60 MG CAPSULE.DR 120 MG PO (08:09)
[2023-05-06] MEDS: CHOLECALCIFEROL 1,000 UNITS TABLET 1000 UNITS PO (08:09)
[2023-05-06] MEDS: buPROPion HCL SR (12HR) 100 MG TABCR 200 MG PO (08:09)
[2023-05-06] MEDS: lisinopriL 20 MG TABLET 40 MG PO (08:09)
[2023-05-06] MEDS: FLUTICASONE/SALMETEROL 115-21 MCG INHALER 1 PUFF 2 PUFF INHALATION ×2 (08:39→20:00)
[2023-05-06] MEDS: POTASSIUM CHLORIDE 20 MEQ ER TABLET 40 MEQ PO (08:55)
[2023-05-06] MEDS: polyethylene glycoL 3350 17 GM POWD.PACK PO (11:10)
--- NOTE | 2023-05-06 15:54 | PM.DS ---
DS: Admitting Diagnosis Discharge Date 05/06/2023: Admitting Diagnosis GI bleeding Acute blood loss anemia DS: Discharge Diagnosis Discharge Diagnosis (1) Anemia due to blood loss: Code(s): D50.0 - Iron deficiency anemia secondary to blood loss (chronic) Status: Acute (2) Pyloric channel ulcer: Code(s): K25.9 - Gastric ulcer, unspecified as acute or chronic, without hemorrhage or perforation Status: Acute (3) GI bleeding: Qualifiers: GI bleed type/associated pathology: unspecified gastrointestinal hemorrhage type Qualified Code(s): K92.2 - Gastrointestinal hemorrhage, unspecified Code(s): K92.2 - Gastrointestinal hemorrhage, unspecified Status: Acute (4) Occult blood in stools: Code(s): R19.5 - Other fecal abnormalities Status: Acute (5) Anemia: Code(s): D64.9 - Anemia, unspecified Status: Acute (6) Leukocytosis: Qualifiers: Leukocytosis type: unspecified Qualified Code(s): D72.829 - Elevated white blood cell count, unspecified Code(s): D72.829 - Elevated white blood cell count, unspecified Status: Acute (7) Morbid obesity due to excess calories: Code(s): E66.01 - Morbid (severe) obesity due to excess calories Status: Acute DS: Summary Hospital Course Hospital Course: H&P: HPI History of Present Illness Date/Time: 05/03/23? 09:03 Chief Complaint: Patient brought to the ER for evaluation with? several episodes of coffee-ground vomiting Narrative: She is a pleasant 72 years old morbidly obese female who is having? multiple episodes of coffee-ground vomiting that started last night.? She also had a bowel movement which was thin, loose and black.? She is also feeling weak and tired.? She was brought to the ER for evaluation, workup was done which showed guaiac positive stools consistent with GI bleeding.? One of her home meds is aspirin but she reports she is not taking that on a regular basis.? She is also complaining of some abdominal pain yesterday which has been resolved.? She is being admitted for medical management, close monitoring and GI evaluation in a. HOSPITAL COURSE ... 05/03/2023 - 05/06/2023: Patient admitted in the hospital and monitored closely. Her WBC count was 8.8 on admission, which went as low at 6.3. She received 2 units of packed RBCs. GI evaluated the patient and she underwent EGD which showed a few superficial acute benign ulcers visualized in the pylorus which were cauterized. Postop her hemoglobin was followed closely and remained stable. She has been cleared from GI standpoint to be discharged with instructions to avoid aspirin and NSAIDs and take Protonix 40 mg orally daily. She is advised to follow up closely with PCP and GI as an outpatient. Her serum ferritin level and iron profile was reviewed which is consistent with moderately severe iron deficiency anemia. I ordered 500 mg IV Venofer x1 dose today in the hospital. I will discharge her on ferrous sulfate 325 mg p.o. b.i.d. for iron deficiency due to acute blood loss. She also had a leukocytosis of 25.6 on admission which is likely reactive in nature as no infectious source was identified. It it has trended down progressively and is 12.9 upon discharge. I would request PCP to follow up on her H&H, Iron studies and WBC very closely. Detailed discharge directions delivered to the patient by myself and my nursing staff, who verbalizes understanding and is very happy and satisfied with the plan. Patient has been advised to continue all medications as prescribed and advised, and f/u with PCP within 1 week. Patient is stable from medical standpoint to be discharged. Total time spent during patient evaluation and assessment, discussion with the nurse/family, addressing discharge medications/scripts and coordination of care for safe discharge was in excess of 35 minutes. Status at Discharge Functional status at discharge: indep
[2023-05-06] MEDS: IRON SUCROSE COMPLEX 500 MG in SODIUM CHLORIDE 0.9% IV 250 ML 78.57 MG IVPB (17:08)
[2023-05-06] MEDS: ATORVASTATIN 10 MG TABLET PO (21:07)
--- NOTE | 2023-05-06 21:19 | PC.NURSE ---
pt returned 24 tablets of alprazolam, verified by DAISHA GROVER, RN pt also returned all locked medications and personal belongings, d/c teaching at this time preparing for D/C
== END 2023-05-06 21:35 | disposition home or self-care (01) ==
LOC: ANHED 21:54 → ANH2MED 05-03 04:27
PROVIDERS: Emergency Medicine; Internal Medicine Gastroenterology; Admitting Provider Internal Medicine; Emergency Provider Student in an Organized Health Care Education/Training Program; PCP Nurse Practitioner Family; Visit Provider Family Medicine
PROC: 0DJ08ZZ Inspection of Upper Intestinal Tract, Via Natural or Artificial Opening Endoscopic (ICD-10-PCS; CPT 43235; principal; 2023-05-03 10:00)
DX: K25.3 Acute gastric ulcer without hemorrhage or perforation (principal); D50.0 Iron deficiency anemia secondary to blood loss (chronic); K57.90 Diverticulosis of intestine, part unspecified, without perforation or abscess without bleeding; R19.5 Other fecal abnormalities; I10 Essential (primary) hypertension; J45.909 Unspecified asthma, uncomplicated; R94.31 Abnormal electrocardiogram [ECG] [EKG]; E03.9 Hypothyroidism, unspecified; D72.829 Elevated white blood cell count, unspecified; Z20.822 Contact with and (suspected) exposure to COVID-19; E66.01 Morbid (severe) obesity due to excess calories; Z68.42 Body mass index [BMI] 45.0-49.9, adult; F10.90 Alcohol use, unspecified, uncomplicated; Z87.891 Personal history of nicotine dependence; Z79.51 Long term (current) use of inhaled steroids; Z79.82 Long term (current) use of aspirin; Z79.1 Long term (current) use of non-steroidal anti-inflammatories (NSAID); Z79.899 Other long term (current) drug therapy
CPT/HCPCS: 43239; 36415; 36430; 71046; 74177; 80048; 80053; 81001; 82248; 82728; 83540; 83550; 83605; 83690; 83735; 84100; 84484; 85014; 85018; 85025; 85610; 85730; 86850; 86900; 86901; 86922; 87081; 87636; 93005; 94640; 96361; 96374; 96375; 96376; 99285; A9270; C9113; G0378; J1756; J2270; J2405; J2704; J7030; J7050; J7120; P9016; Q9967

== ENCOUNTER 2023-05-13 13:41 | Emergency (ER) | payer MEDICARE, SELFPAY ==
[2023-05-13 13:53] VITALS: BP 126/87; PULSE 95; RESP 22; TEMP 36.6; O2SAT 98
[2023-05-13 13:55] VITALS: PULSE 89
[2023-05-13 13:55] LABS: Glucose Point of Care 111 mg/dl (65-105)
--- NOTE | 2023-05-13 14:01 | ED.SOB ---
HPI - SOB/Dyspnea General Chief Complaint: Shortness of Breath/Dyspnea Stated Complaint: SOB Time Seen by Provider: 05/13/23 14:01 Source: patient Mode of arrival: ambulatory Limitations: no limitations History of Present Illness HPI Narrative: 72-year-old female presents pale, diaphoretic complaining of shortness of breath. States she was walking around [employer] when symptoms started. Reports feeling dizzy when ambulatory. Patient reports that she feels hot but extremities are cold. Over the last few days she has had intermittent left-sided chest pain. Reports last week she had a blood transfusion for bleeding pyloric channel ulcer. Also reports cough, congestion for 2 days, afebrile. All systems reviewed and negative except as noted above. Related Data Home Medications Medication Instructions Recorded Confirmed albuterol sulfate 90 mcg/actuation See Rx Instructions .Route 02/03/20 05/03/23 aerosol inhaler .COMPLEX PRN Shortness Of Breath Or Wheezing alprazolam 0.5 mg tablet 0.5 mg PO BID PRN Anxiety 02/03/20 05/03/23 budesonide-formoterol HFA 160 2 puff inhalation BID 02/03/20 05/03/23 mcg-4.5 mcg/actuation aerosol inhaler (Symbicort) fluticasone propionate 50 1 spray intranasal DAILY PRN 02/03/20 05/03/23 mcg/actuation nasal allergies spray,suspension levothyroxine 25 mcg tablet 25 mcg PO DAILY 02/03/20 05/03/23 montelukast 10 mg tablet 10 mg PO DAILY 02/03/20 05/03/23 acetaminophen 650 mg tablet 650 mg PO Q6H PRN Mild Pain (Scale 05/03/23 05/03/23 Score 1-4) atorvastatin 10 mg tablet 10 mg PO HS 05/03/23 05/03/23 azelastine 0.05 % eye drops See Rx Instructions .Route 05/03/23 05/03/23 .COMPLEX PRN allergies bupropion HCl 200 mg tablet,12 hr 200 mg PO DAILY 05/03/23 05/03/23 sustained-release cholecalciferol (vitamin D3) 25 25 mcg PO DAILY 05/03/23 05/03/23 mcg (1,000 unit) capsule (Vitamin D3) duloxetine 60 mg capsule,delayed 120 mg PO DAILY 05/03/23 05/03/23 release famotidine 20 mg tablet 20 mg PO BID 05/03/23 05/03/23 lisinopril 40 mg tablet 40 mg PO DAILY 05/03/23 05/03/23 [id number] 18 mg-mfolate 1 tablet PO DAILY 05/03/23 05/03/23 800 mcg DFE-vit K 150 mcg-herb tablet (Alive Women's Ultra Potency) vitamin B complex 1 tablet PO DAILY 05/03/23 05/03/23 Allergies Allergy/AdvReac Type Severity Reaction Status Date / Time No Known Allergies Allergy Unknown Verified 05/03/23 13:30 Review of Systems Review of Systems: CONSTITUTIONAL: Denies fever, chills. Reports sweats, pale. EYES: Denies visual changes, redness, or discharge. ENT: Reports rhinorrhea, congestion. Denies sore throat, or otalgia. CARDIOVASCULAR: reports left-sided chest pain. Denies palpitations, or edema. RESPIRATORY: reports cough and dyspnea. GASTROINTESTINAL: Denies abdominal pain, nausea, vomiting, or diarrhea. GENITOURINARY: Denies dysuria or hematuria. SKIN: Denies rash or itching. MUSCULOSKELETAL: Denies back pain, joint pain, or myalgia. NEUROLOGIC: Denies headache, numbness, or weakness. PSYCHIATRIC: Denies anxiety or depression. All other systems reviewed are negative, except as documented in HPI. [facility] Past Medical History Medical History (Updated 05/13/23 @ 14:24 by Faith Ramsey NP) History of asthma History of hypertension History of hypothyroidism Morbid obesity due to excess calories Surgical History Surgical History History of cholecystectomy History of colonoscopy Family History Family History (Updated 05/04/23 @ 09:50 by Zehra Almonte MD) Daughter , due to MVA; also has Kidney failure Father Malignant neoplasm of prostate Kidney failure Lung cancer Mother Breast cancer Lung cancer Sibling Dementia Sibling Cancer Social History Social History Smoking packs per day: 0.5 Smoking cigarette
--- NOTE | 2023-05-13 14:13 | ECG_ITS ---
Measurements Intervals [place] Rate: 77 P: 70 [place]: 179 QRS: -27 QRSD: 99 T: 38 QT: 378 QTc: 429 Interpretive Statements SINUS RHYTHM LEFT AXIS DEVIATION ABNORMAL ECG COMPARED TO ECG 05/13/2023 13:59:30 NO SIGNIFICANT CHANGES Electronically Signed On 05-14-2023 13:51:53 [employer] by Dipak Mast M.D.
[2023-05-13 14:25] VITALS: PULSE 84; RESP 20; O2SAT 99
== END 2023-05-13 14:50 | disposition short-term general hospital (02) ==
PROVIDERS: Emergency Provider Nurse Practitioner Family; PCP Nurse Practitioner Family
DX: R06.00 Dyspnea, unspecified (principal); R07.9 Chest pain, unspecified; R61 Generalized hyperhidrosis; Z20.822 Contact with and (suspected) exposure to COVID-19; Z87.891 Personal history of nicotine dependence; J45.909 Unspecified asthma, uncomplicated; I10 Essential (primary) hypertension; E03.9 Hypothyroidism, unspecified; E66.01 Morbid (severe) obesity due to excess calories; Z68.42 Body mass index [BMI] 45.0-49.9, adult
CPT/HCPCS: 82948; 87426; 87804; 93005; 99213; C9803; G0463

== ENCOUNTER 2023-05-13 14:45 | Observation (INO) | payer MEDICARE, SELFPAY ==
[2023-05-13] VITALS (12 sets, daily range): BP systolic 144–154; BP diastolic 74–92; PULSE 74–98; RESP 16–23; TEMP 36.6–36.8; O2SAT 96–100; BMI 47.2
--- NOTE | ~2023-05-13 | XR_ITS ---
EXAMINATION: XR chest 1V portable Exam Date/Time: 05/13/2023 17:40 HIDE GRADER HISTORY: sob, cough Comparison: 05/03/2023. RESULT: Lines, tubes, and devices: None. Lungs and pleura: Mild senescent change, otherwise clear. Cardiomediastinal silhouette: Stable. Other: No acute osseous or upper abdominal finding. IMPRESSION: No acute cardiopulmonary process. Reviewed, dictated and finalized at location K. GRADER
--- NOTE | 2023-05-13 16:55 | ECG_ITS ---
Measurements Intervals [place] Rate: 91 P: 18 [place]: 184 QRS: -37 QRSD: 97 T: 47 QT: 350 QTc: 431 Interpretive Statements SINUS RHYTHM MARKED LEFT AXIS DEVIATION [QRS AXIS < -30] ABNORMAL ECG COMPARED TO ECG 05/02/2023 20:27:52 SINUS RHYTHM NOW PRESENT LEFT-AXIS DEVIATION NOW PRESENT Electronically Signed On 05-14-2023 13:51:14 [facility]IR by Dipak Mast M.D.
--- NOTE | 2023-05-13 17:02 | ED.DIZZY ---
HPI - Dizziness General Chief Complaint: Dizziness <MIKE Brown Last Filed: 05/13/23 19:51> Stated Complaint: sob, lightheaded <MIKE Brown Last Filed: 05/13/23 19:51> Time Seen by Provider: 05/13/23 16:54 <MIKE Brown Last Filed: 05/13/23 19:51> Source: patient and old records reviewed <MIKE Brown Last Filed: 05/13/23 19:51> Mode of arrival: ambulatory <MIKE Brown Last Filed: 05/13/23 19:51> Limitations: no limitations <MIKE Brown Last Filed: 05/13/23 19:51> History of Present Illness HPI Narrative: Patient is a 72 y/o female who presents to the ED with multiple complaints. Patient reports recent admission from 05/02-05/05 for hematemesis, bleeding ulcer, she did require blood transfusions at that time. Patient reports since being discharged, she has had a cough and congestion. She began feeling dizzy and lightheaded today with shortness breath, worse with exertion. She notes she walked into a store and had to stop several times to catch her breath. She went to an urgent care and tested negative for COVID and influenza. She was sent here for further evaluation. Patient denies having chest pain today, but did report intermittent episodes of chest pain yesterday. She does still feel slightly short of breath and lightheaded currently. She notes history of asthma. She tried using her Symbicort and Ventolin today without improvement. Denies fevers. Denies abdominal pain, nausea, vomiting. <MIKE Brown Last Filed: 05/13/23 19:51> Related Data Home Medications: Home Medications Medication Instructions Recorded Confirmed albuterol sulfate 90 mcg/actuation See Rx Instructions .Route 02/03/20 05/13/23 aerosol inhaler .COMPLEX PRN Shortness Of Breath Or Wheezing alprazolam 0.5 mg tablet 0.5 mg PO BID PRN Anxiety 02/03/20 05/13/23 budesonide-formoterol HFA 160 2 puff inhalation BID 02/03/20 05/13/23 mcg-4.5 mcg/actuation aerosol inhaler (Symbicort) fluticasone propionate 50 1 spray intranasal DAILY PRN 02/03/20 05/13/23 mcg/actuation nasal allergies spray,suspension levothyroxine 25 mcg tablet 25 mcg PO DAILY 02/03/20 05/13/23 montelukast 10 mg tablet 10 mg PO DAILY 02/03/20 05/13/23 acetaminophen 650 mg tablet 650 mg PO Q6H PRN Mild Pain (Scale 05/03/23 05/13/23 Score 1-4) atorvastatin 10 mg tablet 10 mg PO HS 05/03/23 05/13/23 azelastine 0.05 % eye drops See Rx Instructions .Route 05/03/23 05/13/23 .COMPLEX PRN allergies bupropion HCl 200 mg tablet,12 hr 200 mg PO DAILY 05/03/23 05/13/23 sustained-release cholecalciferol (vitamin D3) 25 25 mcg PO DAILY 05/03/23 05/13/23 mcg (1,000 unit) capsule (Vitamin D3) duloxetine 60 mg capsule,delayed 120 mg PO DAILY 05/03/23 05/13/23 release famotidine 20 mg tablet 20 mg PO BID 05/03/23 05/13/23 lisinopril 40 mg tablet 40 mg PO DAILY 05/03/23 05/13/23 [id number] 18 mg-mfolate 1 tablet PO DAILY 05/03/23 05/13/23 800 mcg DFE-vit K 150 mcg-herb tablet (Alive Women's Ultra Potency) vitamin B complex 1 tablet PO DAILY 05/03/23 05/13/23 <Jen Ramos PA-C - Last Filed: 05/13/23 19:51> Allergies/Adverse Reactions: Allergies Allergy/AdvReac Type Severity Reaction Status Date / Time No Known Allergies Allergy Unknown Verified 05/03/23 13:30 <Jen Ramos PA-C - Last Filed: 05/13/23 19:51> Review of Systems Review of Systems: CONSTITUTIONAL: Denies fever, chills, or sweats. ENT: See HPI. CARDIOVASCULAR: See HPI. RESPIRATORY: See HPI. GASTROINTESTINAL: Denies abdominal pain, nausea, vomiting, or diarrhea. MUSCULOSKELETAL: Denies back pain, extremity pain, myalgia. NEUROLOGIC: See HPI. <Jen Ramos PA-C - Last Filed: 05/13/23 19:51> All systems reviewed & are unremarkable except as noted in HPI and below <Jen Ramos PA-C - L
[2023-05-13 17:23] LABS: Basophils Absolute Auto 0.1 K/mm3 (0.0-0.1); Basophils Percent Auto 0.7 % (0.2-1.2); Eosinophils Absolute Auto 0.5 K/mm3 (0-0.3); Eosinophils Percent Auto 4.2 % (0-4.4); Hematocrit 37.1 % (37.0-47.0); Hemoglobin 11.1 g/dL (12.0-15.0); Immature Granulocyte Absolute 0.09 K/mm3 (0.00-0.031); Immature Granulocyte Percent A 0.7 % (0-0.5); Lymphocytes Absolute Auto 1.88 K/mm3 (0.9-3.2); Lymphocytes Percent Auto 15.5 % (18.3-44.2); Mean Corpuscular HGB Conc 29.9 g/dl (32-36); Mean Corpuscular Hemoglobin 30.4 pg (26-34); Mean Corpuscular Volume 101.6 fl (80-100); Mean Platelet Volume 9.6 fl (7.4-10.4); Monocytes Absolute Auto 0.9 K/mm3 (0.1-0.6); Neutrophils Absolute Auto 8.7 K/mm3 (1.3-6.7); Neutrophils Percent Auto 71.9 % (45.5-73.1); Platelet Count Result 553 k/mm3 (150-375); Red Blood Count 3.65 M/mm3 (4.2-5.4); Red Cell Distribution Width 19.2 % (11.5-14.5); White Blood Count 12.1 K/mm3 (4.5-10.0)
[2023-05-13 17:33] LABS: INR 0.9; Prothrombin Time 12.3 Seconds (11.1-14.7)
[2023-05-13 17:34] LABS: Partial Thromboplastin Time 34.4 SECONDS (22.3-36.8)
[2023-05-13 17:35] LABS: Alanine Aminotransferase 26 U/L (6-35); Albumin Level 4.5 g/dL (3.5-5.1); Alkaline Phosphatase 87 U/L (38-126); Anion Gap 8 mmol/L (8-16); Aspartate Amino Transferase 27 U/L (14-36); Bilirubin,Total 0.4 mg/dL (0.2-1.3); Blood Urea Nitrogen 19 mg/dL (7-17); Carbon Dioxide 28 mmol/L (22-30); Chloride 103 mmol/L (98-107); Estimated Glomerular Filt Rate > 60; Glucose 111 mg/dL (65-110); Potassium 4.1 mmol/L (3.4-5.0); Sodium 139 mmol/L (137-145)
[2023-05-13 17:47] LABS: D Dimer 0.28 ug/mL (<0.48); NT Pro B Type Natriuretic Pept 95 pg/mL (19.9-100); Troponin I < 0.012 ng/mL (0.000-0.034)
[2023-05-13 17:54] LABS: Platelet Estimate Increased (Adequate); Schistocytes None Seen (NORMAL)
[2023-05-13 17:55] LABS: Anisocytosis 3+ (NORMAL); Hypochromasia 1+ (NORMAL)
[2023-05-13] MEDS: LEVALBUTEROL NEB 1.25 MG/3 ML INHALATION (18:00)
[2023-05-13] MEDS: IPRATROPIUM BR 0.02% INH SOLN 0.5 MG/2.5 ML VIAL INHALATION ×2 (18:01→20:04)
[2023-05-13 19:07] LABS: Magnesium 2.4 mg/dL (1.6-2.3)
[2023-05-13] MEDS: SODIUM CHLORIDE 0.9% IV 500 ML 999 ML IV CONT (19:29)
[2023-05-13] MEDS: methylPREDNISolone SOD SUCC 125 MG VIAL IV PUSH (19:29)
[2023-05-13 19:36] LABS: Influenza A QL RT-PCR Negative (Negative); Influenza B QL RT-PCR Negative (Negative); RSV RNA, RT-PCR Negative (Negative); SARS-CoV-2 RNA PCR Negative (Negative)
[2023-05-13] MEDS: LEVALBUTEROL NEB 1.25 MG/3 ML 0.63 MG INHALATION (20:04)
[2023-05-13 20:15] LABS: Appearance Urine Cloudy (Clear); Bacteria Urine Rare /hpf; Bilirubin Urine Negative (Negative); Blood Urine Negative (Negative); Color Urine Dark Yellow (Yellow); Glucose Urine UA Negative (Negative); Ketones Urine 1+ mg/dL (Negative); Leukocyte Esterase Ur 1+ LEU/UL (Negative); Need Manual Microscopic Reviewed; Nitrate Urine Negative (Negative); Protein Urine Trace mg/dL (Negative); RBC Urine 0-2 /hpf (0-2); Specific Grav Ur 1.035 (1.001-1.035); Squamous Epithelial Cell Urine None seen /hpf (Few); WBC Urine 0-5 /hpf; pH Urine 5.5 (5.0-9.0)
[2023-05-13 20:17] LABS: Add Urine Microscopic? YES
--- NOTE | 2023-05-13 21:43 | ADMGEN ---
This patient, Sandra Llamas, was admitted to [facility] Surg Room 322-02. Patient/family oriented to hospital policies and general routines including ID bracelet, bed and alarms, visiting hours, pain management, procedures, bathroom and other care routines, personal items, smoking policy, room service/diet, and visiting hours. Information on how to activate the Rapid Response Team has been discussed. Patient/Family are encouraged to report perceived risks to care and to ask questions if they do not understand what they are told or what they should do.
--- NOTE | 2023-05-13 22:16 | PM.IMHP ---
H&P: HPI History of Present Illness Date/Time: 05/13/23 22:16 Chief Complaint: SOB Narrative: Patient is a 72 y/o female who presents to the ED with multiple complaints. She was recently hospitalized from 05/02-05/05 for hematemesis, bleeding ulcer, she did require blood transfusions at that time., She reported that since she was discharged, she has had a cough and congestion.? She began feeling dizzy and lightheaded today with shortness breath, worse with exertion.? She notes she walked into a store and had to stop several times to catch her breath.? She went to an urgent care and tested negative for COVID and influenza.? She was sent here for further evaluation.? Patient denies having chest pain today, but did report intermittent episodes of chest pain yesterday.? She does still feel slightly short of breath and lightheaded currently.? She notes history of asthma.? She tried using her Symbicort and Ventolin today without improvement.? Denies fevers.? Denies abdominal pain, nausea, vomiting. Review of Systems Review of Systems: All systems reviewed & are unremarkable except as noted in HPI and below PMFSH Past Medical History Medical History History of asthma History of hypertension History of hypothyroidism Morbid obesity due to excess calories Surgical History Surgical History History of cholecystectomy History of colonoscopy Family History Family History Daughter , due to MVA; also has Kidney failure Father Malignant neoplasm of prostate Kidney failure Lung cancer Mother Breast cancer Lung cancer Sibling Dementia Sibling Cancer Social History Social History Smoking packs per day: 0.5 Smoking cigarettes per day: 10.0 Years smoked: 12 Smoking pack-years: 6.00 Smoking status: Never smoker Tobacco type: cigarettes Second hand tobacco smoke exposure: No Alcohol intake: current Drinks per week: 10 Substance use: never Substance use type: does not use Lack of Transportation: No Lack of Food: Never True Current Housing: I Have Housing Concerned About Future Housing: No Difficulty Paying Gas/Electric Bills: No Difficulty Paying for Meds: No Currently Unemployed: No Education: High School Diploma/GED Difficulty w/ Childcare or Family Care: No Gender identity (if verbalized by the patient): Female Spiritual care concerns: No Meds Home Medications and Allergies Home Medications Medication Instructions Recorded Confirmed Type albuterol sulfate 90 mcg/actuation See Rx Instructions .Route 02/03/20 05/13/23 History aerosol inhaler .COMPLEX PRN Shortness Of Breath Or Wheezing alprazolam 0.5 mg tablet 0.5 mg PO BID PRN Anxiety 02/03/20 05/13/23 History budesonide-formoterol HFA 160 2 puff inhalation BID 02/03/20 05/13/23 History mcg-4.5 mcg/actuation aerosol inhaler (Symbicort) fluticasone propionate 50 1 spray intranasal DAILY PRN 02/03/20 05/13/23 History mcg/actuation nasal allergies spray,suspension levothyroxine 25 mcg tablet 25 mcg PO DAILY 02/03/20 05/13/23 History montelukast 10 mg tablet 10 mg PO DAILY 02/03/20 05/13/23 History acetaminophen 650 mg tablet 650 mg PO Q6H PRN Mild Pain (Scale 05/03/23 05/13/23 History Score 1-4) atorvastatin 10 mg tablet 10 mg PO HS 05/03/23 05/13/23 History azelastine 0.05 % eye drops See Rx Instructions .Route 05/03/23 05/13/23 History .COMPLEX PRN allergies bupropion HCl 200 mg tablet,12 hr 200 mg PO DAILY 05/03/23 05/13/23 History sustained-release cholecalciferol (vitamin D3) 25 25 mcg PO DAILY 05/03/23 05/13/23 History mcg (1,000 unit) capsule (Vitamin D3) duloxetine 60 mg capsule,delayed 120 mg PO DAILY 05/03/23 05/13/23 His
[2023-05-14] VITALS (11 sets, daily range): BP systolic 129–143; BP diastolic 74–98; PULSE 72–112; RESP 18; TEMP 35.6–36.8; O2SAT 92–96
[2023-05-14] MEDS: ACETAMINOPHEN 500 MG TABLET 1000 MG PO ×2 (00:55→07:04)
[2023-05-14] MEDS: LORATADINE 10 MG TABLET PO (00:55)
[2023-05-14] MEDS: LEVALBUTEROL NEB 1.25 MG/3 ML 0.63 MG INHALATION ×3 (01:46→13:03)
[2023-05-14] MEDS: IPRATROPIUM BR 0.02% INH SOLN 0.5 MG/2.5 ML VIAL INHALATION ×2 (01:47→13:04)
[2023-05-14] MEDS: LEVOTHYROXINE SODIUM 25 MCG TABLET PO (05:08)
[2023-05-14] MEDS: FLUTICASONE/SALMETEROL 115-21 MCG INHALER 1 PUFF 2 PUFF INHALATION (07:10)
[2023-05-14] MEDS: IPRATROPIUM BR 0.02% INH SOLN 0.5 MG/2.5 ML VIAL (07:16)
[2023-05-14 07:46] LABS: Anion Gap 10 mmol/L (8-16); Blood Urea Nitrogen 14 mg/dL (7-17); Calcium 9.5 mg/dL (8.4-10.2); Carbon Dioxide 23 mmol/L (22-30); Chloride 104 mmol/L (98-107); Estimated Glomerular Filt Rate > 60; Glucose 139 mg/dL (65-110); Potassium 3.9 mmol/L (3.4-5.0); Sodium 137 mmol/L (137-145)
[2023-05-14 07:51] LABS: Basophils Percent Auto 0.3 % (0.2-1.2); Hematocrit 33.6 % (37.0-47.0); Hemoglobin 10.2 g/dL (12.0-15.0); Immature Granulocyte Percent A 0.9 % (0-0.5); Lymphocytes Absolute Auto 0.72 K/mm3 (0.9-3.2); Lymphocytes Percent Auto 6.3 % (18.3-44.2); Mean Corpuscular HGB Conc 30.4 g/dl (32-36); Mean Corpuscular Hemoglobin 30.3 pg (26-34); Mean Corpuscular Volume 99.7 fl (80-100); Mean Platelet Volume 9.9 fl (7.4-10.4); Monocytes Absolute Auto 0.1 K/mm3 (0.1-0.6); Monocytes Percent Auto 0.9 % (2.6-8.5); Neutrophils Absolute Auto 10.4 K/mm3 (1.3-6.7); Neutrophils Percent Auto 91.6 % (45.5-73.1); Platelet Count Result 558 k/mm3 (150-375); Red Blood Count 3.37 M/mm3 (4.2-5.4); Red Cell Distribution Width 18.5 % (11.5-14.5); White Blood Count 11.3 K/mm3 (4.5-10.0)
[2023-05-14] MEDS: FAMOTIDINE 20 MG TABLET PO (09:13)
[2023-05-14] MEDS: PANTOPRAZOLE 40 MG TABLET PO (09:13)
[2023-05-14] MEDS: VITAMIN B COMPLEX CAPSULE 1 CAP PO (09:13)
[2023-05-14] MEDS: lisinopriL 20 MG TABLET 40 MG PO (09:14)
[2023-05-14] MEDS: DULoxetine HCL 60 MG CAPSULE.DR 120 MG PO (09:14)
[2023-05-14] MEDS: buPROPion HCL SR (12HR) 100 MG TABCR 200 MG PO (09:14)
[2023-05-14] MEDS: predniSONE 20 MG TABLET 60 MG PO (09:14)
[2023-05-14] MEDS: FERROUS SULFATE 325 MG TABLET DR BY MOUTH (09:15)
[2023-05-14] MEDS: CHOLECALCIFEROL 1,000 UNITS TABLET 1000 UNITS PO (09:15)
[2023-05-14] MEDS: FLUTICASONE PROPIONATE 0.05% NA SPR 16 GM BTL (*BKC) 1 SPRAY NASAL (09:15)
[2023-05-14] MEDS: MONTELUKAST SODIUM 10 MG TABLET PO (09:15)
[2023-05-14] MEDS: ALPRAZolam (*CRX) 0.5 MG TABLET PO (09:32)
--- NOTE | 2023-05-14 12:12 | HOMEO2EVAL ---
Evaluation was performed at [facility] Home Oxygen Evaluation RC: Home Oxygen (O2) Evaluation Start: 05/14/23 09:22 Freq: ONCE Status: Active Protocol: RPE Activity Type Activity Date Activity User E-sign Co-sign Detail Recorded Client Recorded Date Recorded By Document 05/14/23 11:45 HARRISON [email or web address] 05/14/23 12:11 HARRISON Document 05/14/23 11:50 HARRISON [email or web address] 05/14/23 12:11 HARRISON Document 05/14/23 12:00 HARRISON [email or web address] 05/14/23 12:11 HARRISON 05/14/23 05/14/23 05/14/23 11:45 11:50 12:00 Home O2 Evaluation [Oxygen] -Test Phase Resting Exercise Resting -Oxygen Delivery Room Air Room Air Room Air [Pulse Oximetry] -Pulse Oximetry (90-100 %) 96 92 96 [Pulse Rate] -Pulse Rate (60-100 beats/min) 94 112 H 100 [Charges] -Evaluation Charges O2 Evaluation by Pulmonary
--- NOTE | 2023-05-14 12:12 | HOMEO2EVAL ---
Evaluation was performed at [facility] Home Oxygen Evaluation RC: Home Oxygen (O2) Evaluation Start: 05/14/23 09:22 Freq: ONCE Status: Active Protocol: RPE Activity Type Activity Date Activity User E-sign Co-sign Detail Recorded Client Recorded Date Recorded By Document 05/14/23 11:45 HARRISON [email or web address] 05/14/23 12:11 HARRISON Document 05/14/23 11:50 HARRISON [email or web address] 05/14/23 12:11 HARRISON Document 05/14/23 12:00 HARRISON [email or web address] 05/14/23 12:11 HARRISON 05/14/23 05/14/23 05/14/23 11:45 11:50 12:00 Home O2 Evaluation [Oxygen] -Test Phase Resting Exercise Resting -Oxygen Delivery Room Air Room Air Room Air [Pulse Oximetry] -Pulse Oximetry (90-100 %) 96 92 96 [Pulse Rate] -Pulse Rate (60-100 beats/min) 94 112 H 100 [Charges] -Evaluation Charges O2 Evaluation by Pulmonary
--- NOTE | 2023-05-14 12:12 | PCRTNOTE ---
Home O2 eval done, no home O2 needed, RN notified
--- NOTE | 2023-05-14 12:22 | PM.DS ---
DS: Admitting Diagnosis Discharge Date 05/14/2023 Admitting Diagnosis Asthma with Acute Exacerbation DS: Discharge Diagnosis Discharge Diagnosis (1) Asthma with exacerbation: Qualifiers: Asthma persistence: unspecified Asthma severity: unspecified severity Qualified Code(s): J45.901 - Unspecified asthma with (acute) exacerbation Code(s): J45.901 - Unspecified asthma with (acute) exacerbation Status: Acute Assessment and Plan: Pt's overall status has improved. A home oxygen evaluation w/6 minute walk was performed and pt passed without difficulty. She is stable for discharge to home. CXR performed here in ER did not show any acute abnormalities. She has been stable without any supplemental oxygen and no further desaturations. (2) Acute hypoxic respiratory failure: Code(s): J96.01 - Acute respiratory failure with hypoxia Status: Acute Assessment and Plan: See Problem #1 DS: Summary Hospital Course Reason for hospitalization: Dyspnea on exertion, Acute on chronic asthma exacerbation, Respiratory failure Hospital Course: This very pleasant 72 year old female pt with PMH of asthma presented to the ER last evening w/complaints of feeling dizzy and lightheaded for most of the day yesterday with some BLANCO. She tested negative for both COVID and Flu yesterday. Her Symbicort and Ventolin yesterday did not help her symptoms, but upon admission to the hospital, she had exponential improvement in her overall condition with oral prednisone and now denies any dyspnea, CP or any symptoms. Status at Discharge Cognitive/behavioral status at discharge: A&Ox4, appears to have good judgement and decision making skills. Functional status at discharge: uses cane/walker Overall status at discharge: patient is back to baseline Time Spent with Patient Time attestation: Total time spent providing and/or coordinating discharge services: 35 minutes Time spent: Greater than 30 minutes Specific discharge activities: Discharge instructions, discharge medications, follow up after discharge Exam Const: General: comfortable and no acute distress HENMT: Mouth: Yes moist mucous membranes Eyes: General: appearance normal, both eyes and all related structures Neck: Neck: supple and no JVD Lymphatic: lymphadenopathy not noted Resp: Effort & Inspection: normal respiratory effort Auscultation: clear to auscultation bilaterally Cardio: Rate: regular rate Rhythm: regular rhythm Heart sounds: no gallops, no murmurs and no rubs GI: Inspection: non-distended GI Palp: Yes Soft to palpation and No Tenderness to palpation present (GI) Auscultation: normal bowel sounds Skin: General skin exam: normal color, no rashes or lesions noted and no erythema Rashes: no rashes noted Wounds: no wounds Neuro: General: gait normal Motor exam (neuro): 5/5 motor strength present throughout and Normal motor muscle tone present throughout Sensory Exam: normal sensation Extrem: General: normal to inspection, no edema and no pedal edema Other: Freely and equally MAEW without deficits. Psych: Mental Status: mental status grossly normal Affect: normal affect DS: Data Data Completed and Pending Completed studies during hospitalization: Impressions Chest X-Ray 05/13/23 17:53 IMPRESSION: No acute cardiopulmonary process. ITS Impressions Chest X-Ray 05/13/23 17:53 IMPRESSION: No acute cardiopulmonary process. Labs on day of discharge: Labs from last 24 hours 05/14/23 05/13/23 05/13/23 07:00 19:41 18:50 WBC 11.3 H RBC 3.37 L Hgb 10.2 L Hct 33.6 L MCV 99.7 MCH 30.3 MCHC 30.4 L RDW 18.5 H Plt Count 558 H MPV 9.9 Immature Gran % (Auto) 0.9 H Neut % (Auto) 91.6 H Lymph % (Auto) 6.3 L [place] % (Auto) 0.9 L Eos % (Auto) 0.0 Baso % (Auto) 0.3 Lymph # (Auto) 0.72 L [place] # (Auto) 0.1 Eos # (Auto) 0.0 Baso # (Aut
--- NOTE | 2023-05-15 12:53 | PC.NURSE ---
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
== END 2023-05-14 13:44 | disposition home or self-care (01) ==
LOC: ANHED 19:48 → ANH3MEDSUR 05-14 01:30
PROVIDERS: Admitting Provider Student in an Organized Health Care Education/Training Program; Emergency Provider Physician Assistant; PCP Nurse Practitioner Family; Visit Provider Nurse Practitioner Adult Health
DX: J45.901 Unspecified asthma with (acute) exacerbation (principal); J96.01 Acute respiratory failure with hypoxia; R42 Dizziness and giddiness; I10 Essential (primary) hypertension; E03.9 Hypothyroidism, unspecified; F41.9 Anxiety disorder, unspecified; Z20.822 Contact with and (suspected) exposure to COVID-19; R93.41 Abnormal radiologic findings on diagnostic imaging of renal pelvis, ureter, or bladder; E66.01 Morbid (severe) obesity due to excess calories; Z68.42 Body mass index [BMI] 45.0-49.9, adult; Z87.891 Personal history of nicotine dependence; Z79.51 Long term (current) use of inhaled steroids; Z79.82 Long term (current) use of aspirin; Z79.899 Other long term (current) drug therapy
CPT/HCPCS: 36415; 71045; 80048; 80053; 81001; 82948; 83735; 83880; 84484; 85025; 85380; 85610; 85730; 87426; 87637; 87804; 93005; 94618; 94640; 96361; 96374; 99213; 99285; A9270; C9803; G0378; G0463; J2930; J7040; J7512